=== PATIENT | female | born 1945 | race Caucasian/White ===

== ENCOUNTER 2016-08-31 11:25 | Outpatient (CLI) | payer MEDICARE, OTHER | END 2016-08-31 11:26 | disposition home or self-care (01) | DX: E11.9 Type 2 diabetes mellitus without complications (principal) ==

== ENCOUNTER 2016-11-26 08:00 | Outpatient (CLI) | payer MEDICARE, OTHER ==
[2016-11-26 19:04] LABS: BASOPHILS % (AUTO) 0.4 %; EOSINOPHILS # (AUTO) 0.1 10^3/uL (0.0-0.7); EOSINOPHILS % (AUTO) 1.4 %; HCT - HEMATOCRIT 38.8 % (37.0-47.0); HGB - HEMOGLOBIN 12.2 g/dL (12.0-16.0); LYMPHOCYTES % (AUTO) 22.8 %; MEAN CORPUSCULAR HEMOGLOBIN 24.6 pg (27.0-31.0); MEAN CORPUSCULAR HGB CONC 31.4 g/dL (32.0-36.0); MEAN CORPUSCULAR VOLUME 78.5 fL (81.0-99.0); MEAN PLATELET VOLUME 8.4 fL (7.9-10.8); MONOCYTES # (AUTO) 0.7 10^3/uL (0.0-1.0); MONOCYTES % (AUTO) 8.1 %; NEUTROPHILS # (AUTO) 5.8 10^3/uL (1.5-6.6); NEUTROPHILS % (AUTO) 67.3 %; NUCLEATED RED BLOOD CELLS AUTO 0.1 /100WBC; RED BLOOD COUNT 4.94 10^6/uL (4.20-5.40); RED CELL DISTRIBUTION WIDTH 15.5 % (12.0-15.0); UNCORRECTED WHITE BLOOD COUNT 8.7 x10^3/uL; WHITE BLOOD COUNT 8.7 x10^3/uL (4.8-10.8)
[2016-11-26 19:41] LABS: ALBUMIN/GLOBULIN RATIO 1.1 (1.0-2.2); BILIRUBIN,TOTAL 0.3 mg/dL (0.2-1.0); BUN - BLOOD UREA NITROGEN 14 mg/dL (6-20); CALCIUM 8.8 mg/dL (8.5-10.3); CARBON DIOXIDE - CO2 25 mmol/L (21-32); CHLORIDE 103 mmol/L (101-111); CHOL/HDL RATIO 2.6 (<4.4); CHOLESTEROL 182 mg/dL; CREATININE 0.8 mg/dL (0.4-1.0); GFR - MDRD 71 (>89); GLUCOSE 145 mg/dL (70-100); HDL CHOLESTEROL 69 mg/dL; LDL/HDL RATIO 1.3 (<4.4); POTASSIUM 4.1 mmol/L (3.5-5.0); SODIUM 136 mmol/L (135-145); TRIGLYCERIDES 131 mg/dL; VLDL CHOLESTEROL 26 mg/dL
[2016-11-26 20:14] LABS: HEMOGLOBIN A1C 0.69 g/dL
== END 2016-11-26 23:59 ==
LOC: LAB.WCP 08:00
PROVIDERS: ATTEND Family Medicine
DX: E11.9 Type 2 diabetes mellitus without complications (principal)
CPT/HCPCS: 36415; 80053; 80061; 83036; 84443; 85025

== ENCOUNTER 2017-01-29 07:58 | Outpatient (CLI) | payer MEDICARE, OTHER | END 2017-01-29 07:59 | disposition critical access hospital (66) | LOC: EMS 07:58 | PROVIDERS: ATTEND Surgery | DX: M54.5 Low back pain (principal); M25.552 Pain in left hip; W18.30XA Fall on same level, unspecified, initial encounter; Y93.01 Activity, walking, marching and hiking; Y92.039 Unspecified place in apartment as the place of occurrence of the external cause | CPT/HCPCS: A0425; A0427 ==

== ENCOUNTER 2017-01-29 08:17 | Emergency (ER) | payer MEDICARE, OTHER ==
[2017-01-29] MEDS ORDERED: diazePAM INJ 5 MG/ML SYRINGE IVP STA (08:31)
[2017-01-29] MEDS ORDERED: ACETAMINOPHEN 1,000 MG/100 ML 100 ML IV STA (08:31)
--- NOTE | 2017-01-29 08:35 | ED Physician Documentation ---
History of Present Illness - Stated complaint Stated Complaint: FALL - Chief complaint Chief Complaint: Ext Problem - Additonal information Additional information: hx from pt 71 female has weakness and recurrent falls was at assisted living with walker and fell onto her bottom and then tipped backwards and struck her head no LOC to ER BIBA NICHOLAS neck pain posterior L hip pain and L ankle pain no blood thinners no fever cough CP SOA NVD Review of Systems Constitutional: denies: Fever, Chills Throat: denies: Sore throat Cardiac: denies: Chest pain / pressure Respiratory: denies: Dyspnea, Cough GI: denies: Abdominal Pain, Nausea, Vomiting, Diarrhea Musculoskeletal: reports: Neck pain, Extremity pain Neurologic: reports: Headache, Head injury Endocrine: denies: Easy bruising / bleeding Immunocompromised: denies: Immunocompromised PD PAST MEDICAL HISTORY - Past Medical History Cardiovascular: Hypertension Respiratory: Asthma, COPD, Pneumonia Neuro: Parkinson's Endocrine/Autoimmune: Type 2 diabetes, HyPOthyroidism GI: GERD, Chronic constipation : Incontinence HEENT: None Psych: Depression, Anxiety Musculoskeletal: None Derm: None - Past Surgical History Past Surgical History: Yes Ortho: Spine surgery - Present Medications Home Medications: Ambulatory Orders Medication Instructions Recorded Confirmed Acetaminophen [Tylenol] 325 mg PO Q4HR PRN 12/10/14 06/20/15 Carbidopa/Levodopa [Carbidopa-Levo 2.5 tab PO 0600,1200,1800,2300 12/10/1406/20 25-100 mg Odt] L.acidoph,Paracasei, B.lactis 1 cap PO DAILY 12/10/14 06/20/15 [Probiotic] Levothyroxine Sodium 25 mcg PO DAILY 12/10/14 06/20/15 Melatonin 5 mg PO QPM 12/10/14 06/20/15 Multivitamin [Multi-Vitamin Daily] 1 tab PO DAILY 12/10/14 06/20/15 Mupirocin 2% Oint [Bactroban 2% 1 applic TOP BID 12/10/14 06/20/15 Oint] Nystatin Cream [Mycostatin Cream] 1 applic TOP BID 12/10/14 06/20/15 Rasagiline [Azilect] 1 mg PO DAILY 12/10/14 06/20/15 Benzonatate [Tessalon Perle] 100 mg PO Q6H PRN #20 capsule 03/09/15 06/20/15 Docusate Sodium [Stool Softener] 2 tab BID 04/25/15 06/20/15 Fluticasone/Salmeterol [Advair 1 puffs INH BID 04/25/15 06/20/15 100-50 Diskus] Ibuprofen 400 mg PO BID PRN 04/25/15 06/20/15 Albuterol [Ventolin Hfa] 2 puffs INH Q6H PRN 04/26/15 06/20/15 Levalbuterol Tartrate [Xopenex Hfa] 1 puffs IH Q4H PRN 04/26/15 06/20/15 Nystatin 1 applic TOP BID 04/26/15 06/20/15 HYDROcod/ACETAM 5/325 [[place] 5/325] 1 - 2 ea PO Q6H PRN 05/28/16 05/28/16 Insulin Aspart [Novolog] 9 unit SQ QDAC 05/28/16 Insulin Glargine,Hum.rec.anlog 35 unit SQ DAILY 05/28/16 05/28/16 [Lantus Solostar] Losartan [Cozaar] 25 mg PO DAILY 05/28/16 05/28/16 Magnesium 500 mg PO QPM 05/28/16 Omeprazole [PriLOSEC] 20 mg PO DAILY 05/28/16 05/28/16 Senna [Senokot] 8.6 mg PO DAILY 05/28/16 05/28/16 - Allergies Allergies/Adverse Reactions: Allergies Allergy/AdvReac Type Severity Reaction Status Date / Time erythromycin base Allergy Unknown Unknown Verified 06/20/15 12:42 cheese Allergy Unknown Verified 06/20/15 12:42 furosemide [From Lasix] Allergy Unknown Verified 06/20/15 12:42 ibuprofen Allergy Unknown Verified 06/20/15 12:42 lisinopril Allergy Unknown Verified 06/20/15 12:42 zolpidem Allergy Unknown Verified 06/20/15 12:42 Penicillins AdvReac Severe Hives Verified 06/20/15 12:42 flour Allergy Unknown Uncoded 06/20/15 12:42 - Social History Does the pt smoke?: No Smoking Status: Never smoker Does the pt drink ETOH?: No Does the pt have substance abuse?: No - Immunizations Immunizations are current?: Yes - POLST Patient has POLST: Yes PD ED PE NORMAL - Vitals Vital signs reviewed: Yes - General General: Alert and oriented X 3 - HEENT HEENT: Atraumatic, PERRL, Other (but c'of NICHOLAS) - Neck Neck: No: No bony TTP (+ diffuse bony TTP s step off, possible distracting injury as well, will image) - Cardiac Cardiac: RRR - Respiratory Respiratory: No respiratory distress, Clear bilaterally - Abdomen Abdomen: Non tender - Extremities Extremities: Other (LLE slightly internally roatted no short, TTP posterior L hip near SO region, femur, knee tib fib NT, calf mm spasm, TTP ankle s deformity , MSV intact) - Neuro Neuro: Alert and oriented X 3, No motor deficit, No sensory deficit Results - Vitals Vitals: Vital Signs - 24 hr 01/29/17 08:18 Temperature 36.5 C Heart Rate 85 Respiratory 16 Rate Blood Pressure 169/81 H O2 Saturation 96 Oxygen O2 Source Room air - Labs Labs: Laboratory Tests 01/29/17 10:37 Urine Color YELLOW Urine Clarity CLEAR Urine pH 7.0 Ur Specific [place] <=1.005 Urine Protein NEGATIVE Urine Glucose (UA) NEGATIVE Urine Ketones NEGATIVE Urine Occult Blood NEGATIVE Urine Nitrite NEGATIVE Urine Bilirubin NEGATIVE Urine Urobilinogen 0.2 (NORMAL) Ur Leukocyte Esterase NEGATIVE Ur Microscopic Review NOT INDICATED Urine Culture Comments NOT INDICATED - Rads (name of study) CTH Radiology: See rad report (no acute) CT CS Radiology: See rad report (no acute) ankle Radiology: See rad report (no acute) L hip and pelvis Radiology: See rad report (no acute) PD MEDICAL DECISION MAKING - ED course ED course: all imaging neg pt now able to transfer and ambuulate with assistance (baseline per records from assisted living) s pain so will dc Departure - Departure Disposition: 01 Home, Self Care Clinical Impression: Fall Qualifiers: Encounter type: initial encounter Qualified Code(s): W19.XXXA - Unspecified fall, initial encounter Head injury Qualifiers: Encounter type: initial encounter Qualified Code(s): S09.90XA - Unspecified injury of head, initial encounter Contusion, hip Qualifiers: Encounter type: initial encounter Laterality: left Qualified Code(s): S70.02XA - Contusion of left hip, initial encounter Condition: Good Instructions: ED Head Injury Closed, ED Contusion Hip, ED Prevention Fall Follow-Up: Ray Irvin, [Primary Care Provider] - (to get your blood pressure rechecked - it was high today ) Comments: The pictures of your head spine pelvis and hip were all fine. The pain seems better now and you are able to comfortable stand and transfer So I think it is safe for you to go back to your residence Please always use your walker and ask for assistance with transfer and ambulation and read over th provided information about steps you can take to try and prevent future falls
[2017-01-29] MEDS ORDERED: ACETAMINOPHEN 1,000 MG/100 ML 100 ML IV ONE (08:51)
[2017-01-29] MEDS ORDERED: diazePAM INJ 5 MG/ML SYRINGE ONE (08:51)
--- NOTE | 2017-01-29 10:09 | XRAY Preliminary Report ---
Exam: XR Ankle 3 View LT IMPRESSION: 1. No acute osseous abnormalities. [facility] SITE ID: [id number]
--- NOTE | 2017-01-29 10:11 | XRAY Preliminary Report ---
Exam: XR Hip w/Pelvis 2-3V LT IMPRESSION: 1. No acute osseous abnormalities. Normal alignment. 2. Mild degenerative changes of the left hip joint. [facility] SITE ID: [id number]
--- NOTE | 2017-01-29 10:12 | XRAY Report ---
EXAM: LEFT ANKLE RADIOGRAPHY EXAM DATE: 01/29/2017 09:52 AM. CLINICAL HISTORY: Fall L ankle pain. COMPARISON: None. TECHNIQUE: 3 views. FINDINGS: Bones: No acute fracture or bony lesion. Posterior calcaneal spur. Joints: Ankle mortise is well maintained. No ankle effusion. No dislocation. Degenerative changes of the left tibiotalar joint and left midfoot. Soft Tissues: Soft tissue swelling. IMPRESSION: 1. No acute osseous abnormalities. [facility] Referring Provider Line: [phone] SITE ID: [id number]
--- NOTE | 2017-01-29 10:14 | XRAY Report ---
EXAM: LEFT HIP AND PELVIS RADIOGRAPHY EXAM DATE: 01/29/2017 09:52 AM. HISTORY: Fall posterior L hip pain. COMPARISONS: 12/29/2015. TECHNIQUE: 1 view of the pelvis and 1 view of the hip. FINDINGS: Bones: Pelvic ring is intact. No acute fracture or bony lesion. Mild degenerative spurring. Joints: Mild narrowing of the left hip joint. Degenerative changes of the lower lumbar spine and righ t hip joint. No dislocation. Soft Tissues: No radiopaque foreign bodies. IMPRESSION: 1. No acute osseous abnormalities. Normal alignment. 2. Mild degenerative changes of the left hip joint. [facility] Referring Provider Line: [phone] SITE ID: [id number]
--- NOTE | 2017-01-29 11:07 | CT Preliminary Report ---
Exam: CT Head W/O IMPRESSION: 1. No acute intracranial abnormality is identified. 2. Parenchymal volume loss and chronic white matter changes. [facility] SITE ID: [id number]
--- NOTE | 2017-01-29 11:09 | CT Report ---
EXAM: CT HEAD EXAM DATE: 01/29/2017 10:22 AM. CLINICAL HISTORY: Fall. Headache. COMPARISON: 05/11/2015. 04/25/2015. TECHNIQUE: Multiaxial CT images were obtained from the foramen magnum to the vertex. IV contrast: Non e. Reformats: Coronal. In accordance with CT protocol optimization, one or more of the following dose reduction techniques w ere utilized for this exam: automated exposure control, adjustment of mA and/or KV based on patient s ize, or use of iterative reconstructive technique. FINDINGS: Parenchyma: Diffuse parenchymal volume loss with periventricular regions of low attenuation. No evide nce of an acute vascular insult or acute parenchymal hemorrhage. No midline shift. No mass effect Extraaxial Spaces: Extra-axial spaces are prominent. No acute extra-axial fluid collections are ident ified. Ventricles: Ventricles are enlarged although symmetric. Sinuses: Imaged paranasal sinuses, orbits, and mastoids show no significant abnormality. Bones: No evidence of fracture or calvarial defect. Other: Changes are seen from bilateral lens surgery. Otherwise, globes and orbits are unremarkable. V ascular calcifications are noted. IMPRESSION: 1. No acute intracranial abnormality is identified. 2. Parenchymal volume loss and chronic white matter changes. [facility] Referring Provider Line: [phone] SITE ID: [id number]
--- NOTE | 2017-01-29 11:12 | CT Preliminary Report ---
Exam: CT Cervical Spine W/O IMPRESSION: 1. No acute cervical spine abnormalities are identified. 2. Degenerative changes of the cervical spine. [facility] SITE ID: [id number]
--- NOTE | 2017-01-29 11:14 | CT Report ---
EXAM: CT CERVICAL SPINE WITHOUT CONTRAST DATE: 01/29/2017 10:21 AM HISTORY: Fall neck pain. COMPARISONS: 05/11/2015. 04/25/2015. TECHNIQUE: Thin-section axial images were acquired of the cervical spine without contrast. Post-proce ssing: Coronal and sagittal reformats. Other: None. In accordance with CT protocol optimization, one or more of the following dose reduction techniques w ere utilized for this exam: automated exposure control, adjustment of mA and/or KV based on patient s ize, or use of iterative reconstructive technique. FINDINGS: Alignment: No scoliosis. Anterolisthesis of C3 on C4 measuring 1.5 mm. Articular facets are normally aligned. Occipital condyles are normally aligned upon the lateral masses of C1. Bones: Incomplete fusion of the posterior arch of C1, a normal variant. Degenerative spurring. No acu te fracture. No bony lesions. Interspace Levels/Facets: C1-C2: Degenerative changes of the anterior arch of C1 and the dens. C2-C3: Partial ankylosis. Intervertebral disk space narrowing. Facet arthropathy. C3-C4: Disk space narrowing. Posterior disk osteophyte complex and left uncovertebral hypertrophy. Fa cet arthropathy. Mild to moderate left neural foraminal narrowing. Central canal narrowing. C4-C5: Disk space narrowing. Osteophyte formation. Broad-based disk osteophyte complex largely on the left with uncovertebral hypertrophy. Facet arthropathy, left greater than right. Mild central canal narrowing. Moderate left neural foraminal narrowing. C5-C6: Disk space narrowing. Osteophyte formation. Broad-based disk osteophyte complex. Central canal narrowing. Facet arthropathy. Severe right and moderate severe left neural foraminal narrowing. C6-C7: Disk space narrowing and osteophyte formation. Disk osteophyte complex. Central canal narrowin g. Facet arthropathy. Severe bilateral neural foraminal narrowing. C7-T1: Disk space narrowing and osteophyte formation. Facet arthropathy. Musculature: Normal. No fatty atrophy. Other: Prevertebral soft tissues are normal. Vascular calcifications. Skull base is unremarkable. Air ways are clear. No enlarged cervical lymph nodes. Visualized sterile gland is heterogeneous. Lung api oz are clear. Thoracic aortic calcified plaque is present. IMPRESSION: 1. No acute cervical spine abnormalities are identified. 2. Degenerative changes of the cervical spine. [facility] Referring Provider Line: [phone] SITE ID: [id number]
[2017-01-29 11:17] LABS: BILIRUBIN,URINE NEGATIVE (NEGATIVE)
[2017-01-29 11:18] LABS: UA CHARGE (STRIP ONLY) YES; UR CULTURE IF IND NOT INDICATED
[2017-01-29 13:20] VITALS: BP 160/75
== END 2017-01-29 13:20 | disposition home or self-care (01) ==
LOC: EDUNIT# → ED 08:17
DX: S09.90XA Unspecified injury of head, initial encounter (principal); S70.02XA Contusion of left hip, initial encounter; M54.2 Cervicalgia; W18.30XA Fall on same level, unspecified, initial encounter; Z91.81 History of falling; Y92.099 Unspecified place in other non-institutional residence as the place of occurrence of the external cause; G20 Parkinson's disease; I10 Essential (primary) hypertension; E11.9 Type 2 diabetes mellitus without complications; Z79.4 Long term (current) use of insulin; E03.9 Hypothyroidism, unspecified
CPT/HCPCS: 70450; 72125; 73502; 73610; 81003; 96374; 96375; 99283; J0131; 81001; 87086

== ENCOUNTER 2017-02-12 13:12 | Outpatient (CLI) | payer MEDICARE, OTHER ==
--- NOTE | 2017-02-12 20:02 | CT Report ---
CT CHEST WITHOUT CONTRAST: 02/12/2017 CLINICAL INDICATION: Followup pulmonary nodule. Axial CT images of the chest were obtained without intravenous contrast. In accordance with CT protocol optimization, one or more of the following dose reduction techniques w ere utilized for this exam: automated exposure control, adjustment of mA and/or KV based on patient size, or use of iterative reconstructive technique. COMPARISON: 10/21/2015 The heart and great vessels demonstrate mild atherosclerotic calcifications. A moderate hiatal herni a is again noted. No hilar or mediastinal lymphadenopathy is seen. The nodule in the posterior left lower lobe now measures 7 x 5 mm (previously 6 x 5 mm), seen on the current examination on axial wong ge 30. No new pulmonary nodule is seen. No effusion or pneumothorax is present. Limited evaluation of upper abdominal structures demonstrates normal adrenal glands. There is prominence of the caudat e and left lobe of the liver, with a somewhat nodular surface contour, suggestive of cirrhosis. A no nobstructing 5 mm calculus is noted in the left kidney. Osseous structures demonstrate degenerative changes. IMPRESSION: NO SIGNIFICANT INTERVAL CHANGE IN PULMONARY NODULE IN THE LEFT LOWER LOBE. RECOMMEND FO LLOWUP CT IN 12 MONTHS TO COMPLETE TWO YEAR SURVEILLANCE. JOB #: [id number] EXT JOB #:[id number]
== END 2017-02-12 13:13 | disposition home or self-care (01) ==
LOC: DI 13:12
PROVIDERS: ATTEND Family Medicine
DX: R91.1 Solitary pulmonary nodule (principal)
CPT/HCPCS: 71250

== ENCOUNTER 2017-03-31 01:15 | Outpatient (CLI) | payer MEDICARE, OTHER | END 2017-03-31 01:16 | disposition critical access hospital (66) | LOC: EMS 01:15 | PROVIDERS: ATTEND Surgery | DX: M54.2 Cervicalgia (principal); W01.0XXA Fall on same level from slipping, tripping and stumbling without subsequent striking against object, initial encounter; Y92.032 Bedroom in apartment as the place of occurrence of the external cause | CPT/HCPCS: A0425; A0429 ==

== ENCOUNTER 2017-03-31 01:33 | Emergency (ER) | payer MEDICARE, OTHER ==
--- NOTE | 2017-03-31 01:43 | ED Physician Documentation ---
PD HPI Fall - Stated complaint Stated Complaint: GLF/HEAD PAIN - History obtained from History obtained from: Patient, EMS - History of Present Illness Mechanism of injury: Slipped Fall distance: Standing position Where injury occurred: Home (lives at [facility]) Timing - onset: How many hours ago (1) Injury(ies) location: Head, Neck, Back (upper back) Pain level max: 3 Pain level now: 3 Quality of pain: Pain, Aching, Dull Associated symptoms: Neck pain. No: LOC, AMS, Amnesia, Seizures, Ear drainage, Nasal drainage, Weakness, Paresthesias, Dyspnea, Nausea / vomiting, Hematemesis , Abdominal distension Symptoms improve with: Rest Worsens with: Movement, Palpation Contributing factors: No: Anticoagulated, Intoxicated Similar symptoms before: Has not had sx before Recently seen: Not recently seen Review of Systems Ten Systems: 10 systems reviewed and negative Constitutional: denies: Fever, Chills Eyes: denies: Photophobia Ears: denies: Ear pain Nose: denies: Rhinorrhea / runny nose, Congestion Cardiac: denies: Chest pain / pressure Respiratory: denies: Cough GI: denies: Nausea, Vomiting, Diarrhea Skin: denies: Rash Neurologic: denies: Focal weakness, Numbness, Seizure PD PAST MEDICAL HISTORY - Past Medical History Cardiovascular: Hypertension Respiratory: Asthma, COPD, Pneumonia Neuro: Parkinson's Endocrine/Autoimmune: Type 2 diabetes, HyPOthyroidism GI: GERD, Chronic constipation : Incontinence HEENT: None Psych: Depression, Anxiety Musculoskeletal: None Derm: None - Past Surgical History Past Surgical History: Yes Ortho: Spine surgery - Present Medications Home Medications: Ambulatory Orders Medication Instructions Recorded Confirmed Acetaminophen [Tylenol] 325 mg PO Q4HR PRN 12/10/14 06/20/15 Carbidopa/Levodopa [Carbidopa-Levo 2.5 tab PO 0600,1200,1800,2300 12/10/1406/20 25-100 mg Odt] L.acidoph,Paracasei, B.lactis 1 cap PO DAILY 12/10/14 06/20/15 [Probiotic] Levothyroxine Sodium 25 mcg PO DAILY 12/10/14 06/20/15 Melatonin 5 mg PO QPM 12/10/14 06/20/15 Multivitamin [Multi-Vitamin Daily] 1 tab PO DAILY 12/10/14 06/20/15 Mupirocin 2% Oint [Bactroban 2% 1 applic TOP BID 12/10/14 06/20/15 Oint] Nystatin Cream [Mycostatin Cream] 1 applic TOP BID 12/10/14 06/20/15 Rasagiline [Azilect] 1 mg PO DAILY 12/10/14 06/20/15 Benzonatate [Tessalon Perle] 100 mg PO Q6H PRN #20 capsule 03/09/15 06/20/15 Docusate Sodium [Stool Softener] 2 tab BID 04/25/15 06/20/15 Fluticasone/Salmeterol [Advair 1 puffs INH BID 04/25/15 06/20/15 100-50 Diskus] Ibuprofen 400 mg PO BID PRN 04/25/15 06/20/15 Albuterol [Ventolin Hfa] 2 puffs INH Q6H PRN 04/26/15 06/20/15 Levalbuterol Tartrate [Xopenex Hfa] 1 puffs IH Q4H PRN 04/26/15 06/20/15 Nystatin 1 applic TOP BID 04/26/15 06/20/15 HYDROcod/ACETAM 5/325 [[place] 5/325] 1 - 2 ea PO Q6H PRN 05/28/16 05/28/16 Insulin Aspart [Novolog] 9 unit SQ QDAC 05/28/16 Insulin Glargine,Hum.rec.anlog 35 unit SQ DAILY 05/28/16 05/28/16 [Lantus Solostar] Losartan [Cozaar] 25 mg PO DAILY 05/28/16 05/28/16 Magnesium 500 mg PO QPM 05/28/16 Omeprazole [PriLOSEC] 20 mg PO DAILY 05/28/16 05/28/16 Senna [Senokot] 8.6 mg PO DAILY 05/28/16 05/28/16 - Allergies Allergies/Adverse Reactions: Allergies Allergy/AdvReac Type Severity Reaction Status Date / Time erythromycin base Allergy Unknown Unknown Verified 03/31/17 01:53 cheese Allergy Unknown Verified 03/31/17 01:53 furosemide [From Lasix] Allergy Unknown Verified 03/31/17 01:53 ibuprofen Allergy Unknown Verified 03/31/17 01:53 lisinopril Allergy Unknown Verified 03/31/17 01:53 zolpidem Allergy Unknown Verified 03/31/17 01:53 Penicillins AdvReac Severe Hives Verified 03/31/17 01:53 flour Allergy Unknown Uncoded 03/31/17 01:53 - Social History Does the pt smoke?: No Smoking Status: Never smoker Does the pt drink ETOH?: No Does the pt have substance abuse?: No - Immunizations Immunizations are current?: Yes - POLST Patient has POLST: Yes PD ED PE NORMAL - Vitals Vital signs reviewed: Yes - General General: Alert and oriented X 3, No acute distress, Well developed/nourished - HEENT HEENT: Atraumatic (no scalp hematomas. TTP over occiput.), PERRL, EOMI, Ears normal, Moist mucous membranes, Pharynx benign - Neck Neck: Supple, no meningeal sign, Other (mild upper C-spine TTP midline. no step off or deformity.) - Cardiac Cardiac: RRR, Strong equal pulses - Respiratory Respiratory: No respiratory distress, Clear bilaterally - Abdomen Abdomen: Soft, Non tender - Back Back: Other (no L spine TTP. Does have mild upper t-spine TTP midline. ) - Derm Derm: Warm and dry - Extremities Extremities: No deformity, No tenderness to palpate - Neuro Neuro: Alert and oriented X 3, road boss 2-12 intact, No motor deficit, No sensory deficit - Psych Psych: Normal mood, Normal affect Results - Vitals Vitals: Vital Signs - 24 hr 03/31/17 01:30 Temperature 36.7 C Heart Rate 78 Respiratory 16 Rate Blood Pressure 165/67 H O2 Saturation 96 Oxygen O2 Source Room air - Rads (name of study) head CT Radiology: Prelim report reviewed, EMP read contemporaneously, See rad report ( No acute or focal intracranial abnormality. Stable findings since 05/11/2015. ) C spine CT Radiology: Prelim report reviewed, EMP read contemporaneously, See rad report ( Degenerative changes narrow the central canal, most pronounced at C5-C6 and C6- C7. Some degree of cord impingement is likely present. Multilevel foraminal stenosis is also seen. Stable findings since 01/29/2017. No fracture is identified. ) T spine Ct Radiology: Prelim report reviewed, EMP read contemporaneously, See rad report ( Disk/endplate osteophytes mildly narrow the central canal at T5-T6, T6-T7 and T7 -T8. Other disk spaces are unremarkable aside from mild multilevel disk space narrowing. Diffuse osteopenia. No fracture is identified. ) PD MEDICAL DECISION MAKING - ED course Complexity details: reviewed results, re-evaluated patient, considered differential, d/w patient ED course: Patient is a 72-year-old female who presents to the emergency department after a ground-level fall today. She lives at [place]. Struck her head and had some neck pain, upper back pain and head pain. These resolved in the emergency department. No acute findings on CT scans. Neurologically intact. Ambulating well in the emergency department. We will have her follow-up with her PCP for further evaluation and care. Patient counseled regarding signs and symptoms for which I believe and urgent re-evaluation would be necessary. Patient with good understanding of and agreement to plan and is comfortable going home at this time This document was made in part using voice recognition software. While efforts are made to proofread this document, sound alike and grammatical errors may occur. Departure - Departure Disposition: 01 Home, Self Care Clinical Impression: Neck pain Fall Qualifiers: Encounter type: initial encounter Qualified Code(s): W19.XXXA - Unspecified fall, initial encounter Head injury Qualifiers: Encounter type: initial encounter Qualified Code(s): S09.90XA - Unspecified injury of head, initial encounter Condition: Good Instructions: ED Head Injury Closed, ED Neck Back Pain General Follow-Up: Ray Irvin DO [Primary Care Provider] - Within 1 week Comments: Your CT scans do not show any acute abnormalities at this time. You do have degenerative disease throughout your spine and to have some canal narrowing which may be impinging on your spinal cord, you can follow-up for this with your doctor for further evaluation.
--- NOTE | 2017-03-31 02:48 | CT Preliminary Report ---
Exam: CT Head W/O IMPRESSION: No acute or focal intracranial abnormality. Stable findings since 05/11/2015. [facility] SITE ID: [id number]
--- NOTE | 2017-03-31 02:51 | CT Report ---
EXAM: CT HEAD EXAM DATE: 03/31/2017 02:25 AM. CLINICAL HISTORY: Fall, neck, head and back pain. COMPARISON: 05/11/2015. TECHNIQUE: Multiaxial CT images were obtained from the foramen magnum to the vertex. IV contrast: Non e. Reformats: Coronal. In accordance with CT protocol optimization, one or more of the following dose reduction techniques w ere utilized for this exam: automated exposure control, adjustment of mA and/or KV based on patient s ize, or use of iterative reconstructive technique. FINDINGS: Parenchyma: No intraparenchymal hemorrhage. No evidence of mass, midline shift, or CT findings of inf arction. Macdonald-white differentiation is distinct. Extraaxial Spaces: Normal for age. No subdural or epidural collections identified. Ventricles: Normal in size and position. Sinuses: Imaged paranasal sinuses, orbits, and mastoids show no significant abnormality. Bones: No evidence of fracture or calvarial defect. Other: No change since the prior study. Grossly stable nonspecific white matter hypodensity, likely small vessel ischemia. IMPRESSION: No acute or focal intracranial abnormality. Stable findings since 05/11/2015. [facility] Referring Provider Line: [phone] SITE ID: [id number]
--- NOTE | 2017-03-31 03:02 | CT Preliminary Report ---
Exam: CT Cervical Spine W/O IMPRESSION: Degenerative changes narrow the central canal, most pronounced at C5-C6 and C6-C7. Some d egree of cord impingement is likely present. Multilevel foraminal stenosis is also seen. Stable findi ngs since 01/29/2017. No fracture is identified. [facility] SITE ID: [id number]
--- NOTE | 2017-03-31 03:04 | CT Report ---
EXAM: CT CERVICAL SPINE WITHOUT CONTRAST DATE: 03/31/2017 02:24 AM HISTORY: Fall, neck, head and back pain. COMPARISONS: 01/29/2017. TECHNIQUE: Thin-section axial images were acquired of the cervical spine without contrast. Post-proce ssing: Coronal and sagittal reformats. Other: None. In accordance with CT protocol optimization, one or more of the following dose reduction techniques w ere utilized for this exam: automated exposure control, adjustment of mA and/or KV based on patient s ize, or use of iterative reconstructive technique. FINDINGS: Alignment: Straightening of the cervical lordosis. 3 mm of anterolisthesis at C3-C4. Bones: No fracture or bone lesion. 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 C2-C3: Non-surgically fused. C3-C4: Moderate left-sided facet osteoarthritis. Moderate to severe left-sided foraminal stenosis. C4-C5: Moderate disk space narrowing. Left-sided facet osteoarthritis. Moderate to severe left-sided foraminal stenosis. C5-C6: Severe disk space narrowing. Endplate osteophyte narrows the central canal. Severe bilateral f oraminal stenosis. C6-C7: Severe disk space narrowing. Endplate osteophyte narrows the central canal, more pronounced th an at C5-C6. Severe bilateral foraminal stenosis. C7-T1: Unremarkable. Musculature: Normal. No fatty atrophy. Other: The paravertebral and prevertebral soft tissues are normal. The lung apices are clear. No change appreciated since the prior study. IMPRESSION: Degenerative changes narrow the central canal, most pronounced at C5-C6 and C6-C7. Some d egree of cord impingement is likely present. Multilevel foraminal stenosis is also seen. Stable findi ngs since 01/29/2017. No fracture is identified. [facility] Referring Provider Line: [phone] SITE ID: [id number]
--- NOTE | 2017-03-31 03:07 | CT Preliminary Report ---
Exam: CT Thoracic Spine W/O IMPRESSION: Disk/endplate osteophytes mildly narrow the central canal at T5-T6, T6-T7 and T7-T8. Othe r disk spaces are unremarkable aside from mild multilevel disk space narrowing. Diffuse osteopenia. N o fracture is identified. [facility] SITE ID: [id number]
--- NOTE | 2017-03-31 03:10 | CT Report ---
EXAM: CT THORACIC SPINE WITHOUT CONTRAST EXAM DATE: 03/31/2017 02:26 AM. CLINICAL HISTORY: Fall, neck, head and back pain. COMPARISONS: None. TECHNIQUE: Thin-section axial images were acquired of the thoracic spine from C7 to L1 without contra st. Post-processing: Coronal and sagittal reformats. Other: None. In accordance with CT protocol optimization, one or more of the following dose reduction techniques w ere utilized for this exam: automated exposure control, adjustment of mA and/or KV based on patient s ize, or use of iterative reconstructive technique. FINDINGS: Alignment: Mild dextroscoliosis and accentuated thoracic kyphosis. Bones: Prominent diffuse osteopenia. No findings of recent fracture. Disk Levels/Facets: Disk/endplate osteophytes mildly narrow the central canal at T5-T6, T6-T7 and T7-T8. Other disk space s are unremarkable aside from mild multilevel disk space narrowing. Musculature: Normal. No fatty atrophy. Other: There is a hiatal hernia IMPRESSION: Disk/endplate osteophytes mildly narrow the central canal at T5-T6, T6-T7 and T7-T8. Othe r disk spaces are unremarkable aside from mild multilevel disk space narrowing. Diffuse osteopenia. N o fracture is identified. [facility] Referring Provider Line: [phone] SITE ID: [id number]
[2017-03-31 05:48] VITALS: BP 145/87
== END 2017-03-31 05:46 | disposition home or self-care (01) ==
LOC: EDUNIT# → ED 01:33 → SUPCPDRO 01:33 → ED 05:46
DX: S09.90XA Unspecified injury of head, initial encounter (principal); M54.2 Cervicalgia; M54.6 Pain in thoracic spine; W01.0XXA Fall on same level from slipping, tripping and stumbling without subsequent striking against object, initial encounter; Y92.099 Unspecified place in other non-institutional residence as the place of occurrence of the external cause; G20 Parkinson's disease; I10 Essential (primary) hypertension; E11.9 Type 2 diabetes mellitus without complications; Z79.4 Long term (current) use of insulin; E03.9 Hypothyroidism, unspecified
CPT/HCPCS: 70450; 72125; 72128; 99283; 99284

== ENCOUNTER 2017-04-10 12:05 | Outpatient (CLI) | payer MEDICARE, OTHER ==
[2017-04-10 19:20] LABS: BASOPHILS % (AUTO) 0.4 %; EOSINOPHILS # (AUTO) 0.1 10^3/uL (0.0-0.7); EOSINOPHILS % (AUTO) 0.8 %; HCT - HEMATOCRIT 40.2 % (37.0-47.0); HGB - HEMOGLOBIN 12.9 g/dL (12.0-16.0); LYMPHOCYTES # (AUTO) 1.6 10^3/uL (1.5-3.5); LYMPHOCYTES % (AUTO) 15.1 %; MEAN CORPUSCULAR HEMOGLOBIN 24.9 pg (27.0-31.0); MEAN CORPUSCULAR VOLUME 77.7 fL (81.0-99.0); MEAN PLATELET VOLUME 8.3 fL (7.9-10.8); MONOCYTES # (AUTO) 0.7 10^3/uL (0.0-1.0); MONOCYTES % (AUTO) 6.5 %; NEUTROPHILS # (AUTO) 8.1 10^3/uL (1.5-6.6); NEUTROPHILS % (AUTO) 77.2 %; RED BLOOD COUNT 5.17 10^6/uL (4.20-5.40); RED CELL DISTRIBUTION WIDTH 16.4 % (12.0-15.0); UNCORRECTED WHITE BLOOD COUNT 10.5 x10^3/uL; WHITE BLOOD COUNT 10.5 x10^3/uL (4.8-10.8)
[2017-04-10 19:33] LABS: HEMOGLOBIN A1C 0.9 g/dL
[2017-04-10 19:39] LABS: ALBUMIN/GLOBULIN RATIO 1.3 (1.0-2.2); BILIRUBIN,TOTAL 0.5 mg/dL (0.2-1.0); BUN - BLOOD UREA NITROGEN 20 mg/dL (6-20); CALCIUM 9.3 mg/dL (8.5-10.3); CARBON DIOXIDE - CO2 22 mmol/L (21-32); CHLORIDE 103 mmol/L (101-111); CREATININE 0.9 mg/dL (0.4-1.0); GFR - MDRD 62 (>89); GLUCOSE 225 mg/dL (70-100); POTASSIUM 4.2 mmol/L (3.5-5.0); SODIUM 135 mmol/L (135-145); TOTAL PROTEIN 6.4 g/dL (6.7-8.2)
[2017-04-10 20:25] LABS: THYROID STIMULATING HORMONE 1.7 uIU/mL (0.34-5.60)
== END 2017-04-10 12:06 ==
LOC: LAB.R 12:05 → LAB.WCP 12:06
PROVIDERS: ATTEND Family Medicine
DX: E11.9 Type 2 diabetes mellitus without complications (principal); G20 Parkinson's disease
CPT/HCPCS: 36415; 80053; 82306; 82607; 82652; 83036; 84443; 85025

== ENCOUNTER 2017-04-15 11:10 | Emergency (ER) | payer MEDICARE, OTHER ==
[2017-04-15 11:27] VITALS: BP 180/77
--- NOTE | 2017-04-15 12:35 | ED Physician Documentation ---
PD HPI CHEST PAIN - Stated complaint Stated Complaint: CHEST/HEAD PX - Chief complaint Chief Complaint: General - History obtained from History obtained from: Patient - History of Present Illness Timing - onset: How many weeks ago (2) Timing - onset during: Other (she had a fall about 2 weeks ago and was seen in ED for neck pain. Says her head still hurts at times when moves quickly, and neck hurts with side to side ROM. Having some pain in left ribs intermittently. No new fall nor injury. Has been taking Tylenol without good improvement. Has oxycodone at home but does not like to take it as makes her feel "too drugged".) Timing - duration: Weeks (2) Timing - details: Abrupt onset, Still present Quality: Aching Location: Left chest, Other (also headache and some feeling of chest heaviness, hurting with movement.) Radiation: No: Back, Abdominal Improved by: Rest Worsened by: Inspiration, Movement, Position Associated symptoms: General Weakness, Palpitations. No: Shortness of air, Nausea, Feeling faint / dizzy Similar symptoms before: Has not had sx before Recently seen: Emergency Dept (03/31/17 for fall with injury of left chest/back and head, with CTs head, neck, chest. Directted to use Tylenol PRN. Patient has had continued pains at times in head and chest. No new fall.) Review of Systems Constitutional: denies: Fever, Chills Nose: denies: Rhinorrhea / runny nose, Congestion Throat: denies: Sore throat Cardiac: reports: Chest pain / pressure. denies: Palpitations, Pedal edema, Calf pain Respiratory: reports: Dyspnea. denies: Cough, Wheezing GI: denies: Abdominal Pain, Nausea, Vomiting, Diarrhea, Bloody / black stool : denies: Dysuria, Frequency Skin: denies: Abrasion (s), Laceration (s) Musculoskeletal: denies: Neck pain, Extremity pain Neurologic: denies: Focal weakness, Numbness PD PAST MEDICAL HISTORY - Past Medical History Past Medical History: Yes Cardiovascular: Hypertension Respiratory: Asthma, COPD, Pneumonia Neuro: Parkinson's Endocrine/Autoimmune: Type 2 diabetes, HyPOthyroidism GI: GERD, Chronic constipation : Incontinence HEENT: None Psych: Depression, Anxiety Musculoskeletal: None Derm: None - Past Surgical History Past Surgical History: Yes Ortho: Spine surgery - Present Medications Home Medications: Ambulatory Orders Medication Instructions Recorded Confirmed Acetaminophen [Tylenol] 325 mg PO Q4HR PRN 12/10/14 04/15/17 Carbidopa/Levodopa [Carbidopa-Levo 2.5 tab PO 0600,1200,1800,2300 12/10/1404/15 25-100 mg Odt] L.acidoph,Paracasei, B.lactis 1 cap PO DAILY 12/10/14 04/15/17 [Probiotic] Levothyroxine Sodium 25 mcg PO DAILY 12/10/14 04/15/17 Melatonin 5 mg PO QPM 12/10/14 04/15/17 Multivitamin [Multi-Vitamin Daily] 1 tab PO DAILY 12/10/14 04/15/17 Mupirocin 2% Oint [Bactroban 2% 1 applic TOP BID 12/10/14 04/15/17 Oint] Nystatin Cream [Mycostatin Cream] 1 applic TOP BID 12/10/14 04/15/17 Rasagiline [Azilect] 1 mg PO DAILY 12/10/14 04/15/17 Benzonatate [Tessalon Perle] 100 mg PO Q6H PRN #20 capsule 03/09/15 04/15/17 Docusate Sodium [Stool Softener] 2 tab BID 04/25/15 04/15/17 Fluticasone/Salmeterol [Advair 1 puffs INH BID 04/25/15 04/15/17 100-50 Diskus] Ibuprofen 400 mg PO BID PRN 04/25/15 04/15/17 Albuterol [Ventolin Hfa] 2 puffs INH Q6H PRN 04/26/15 04/15/17 Levalbuterol Tartrate [Xopenex Hfa] 1 puffs IH Q4H PRN 04/26/15 04/15/17 Nystatin 1 applic TOP BID 04/26/15 04/15/17 HYDROcod/ACETAM 5/325 [[place] 5/325] 1 - 2 ea PO Q6H PRN 05/28/16 04/15/17 Insulin Aspart [Novolog] 9 unit SQ QDAC 05/28/16 04/15/17 Insulin Glargine,Hum.rec.anlog 35 unit SQ DAILY 05/28/16 04/15/17 [Lantus Solostar] Losartan [Cozaar] 25 mg PO DAILY 05/28/16 04/15/17 Magnesium 500 mg PO QPM 05/28/16 04/15/17 Omeprazole [PriLOSEC] 20 mg PO DAILY 05/28/16 04/15/17 Senna [Senokot] 8.6 mg PO DAILY 05/28/16 04/15/17 Naproxen 375 mg PO BID #20 tablet 04/15/17 Tramadol HCl 50 mg PO Q6H PRN #20 tablet 04/15/17 - Allergies Allergies/Adverse Reactions: Allergies Allergy/AdvReac Type Severity Reaction Status Date / Time erythromycin base Allergy Unknown Unknown Verified 03/31/17 01:53 cheese Allergy Unknown Verified 03/31/17 01:53 furosemide [From Lasix] Allergy Unknown Verified 03/31/17 01:53 ibuprofen Allergy Unknown Verified 03/31/17 01:53 lisinopril Allergy Unknown Verified 03/31/17 01:53 zolpidem Allergy Unknown Verified 03/31/17 01:53 Penicillins AdvReac Severe Hives Verified 03/31/17 01:53 flour Allergy Unknown Uncoded 03/31/17 01:53 - Social History Does the pt smoke?: No Smoking Status: Never smoker Does the pt drink ETOH?: No Does the pt have substance abuse?: No - Immunizations Immunizations are current?: Yes - POLST Patient has POLST: Yes PD ED PE NORMAL - Vitals Vital signs reviewed: Yes - General General: Alert and oriented X 3, No acute distress, Well developed/nourished - HEENT HEENT: Atraumatic, Ears normal, Pharynx benign - Neck Neck: Supple, no meningeal sign, No bony TTP (tender left side neck in muscles. ), No adenopathy - Cardiac Cardiac: RRR, No murmur - Respiratory Respiratory: Clear bilaterally, Other (left posterolateral chest wall with tenderness. No bruising. No noted crapitance. ) - Abdomen Abdomen: Soft, Non tender, Non distended - Derm Derm: Normal color, Warm and dry - Extremities Extremities: No tenderness to palpate, Normal ROM s pain - Neuro Neuro: Alert and oriented X 3, No motor deficit, No sensory deficit, Normal speech Results - Vitals Vitals: Vital Signs - 24 hr 04/15/17 11:22 Temperature 36.9 C Heart Rate 87 Respiratory 18 Rate Blood Pressure 180/77 H O2 Saturation 100 Oxygen O2 Source Room air - EKG (time done) 11:30 Rate: Rate (enter#) (95) Rhythm: NSR [place]: Normal Intervals: Normal [place] QRS: Normal Ischemia: Normal ST segments. No: ST elevation c/w ischemia, ST depression PD MEDICAL DECISION MAKING - ED course Complexity details: reviewed old records (seen for these injuries [address] head/neck/chest without acute findings. No new fall. I did not see need for re-imaging. ), reviewed results, considered differential (has persistent pains since recent fall, with some headache at times, chest/back pain that hurts with movement. No focal weaknesses. ), d/w patient Departure - Departure Disposition: 01 Home, Self Care Clinical Impression: Neck pain, Intermittent headache Contusion of chest Qualifiers: Encounter type: subsequent encounter Laterality: left Qualified Code(s): S20.212D - Contusion of left front wall of thorax, subsequent encounter Condition: Stable Record reviewed to determine appropriate education?: Yes Instructions: ED Contusion Chest Wall, ED Neck Back Pain General Follow-Up: Ray Irvin DO [Primary Care Provider] - Prescriptions: Naproxen 375 mg PO BID #20 tablet Tramadol HCl 50 mg PO Q6H PRN #20 tablet PRN Reason: Pain Comments: Continue your current medications. Add naproxen 375 mg twice daily for a week as an anti-inflammatory. Be sure to take it with some food. To this add the Tylenol 4 times a day as needed for pain. If needing something a little stronger, try tramadol and see if it works okay without making you feel "too drugged". Follow-up with Dr. Irvin. Contact her and see if she can increase her current physical therapy to include work on the neck for the arthritis and degenerative disks. Discharge Date/Time: 04/15/17 13:32
[2017-04-15] MEDS ORDERED: NAPROXEN 250 MG TABLET PO STA (13:12)
[2017-04-15] MEDS ORDERED: traMADol 50 MG TABLET PO STA (13:12)
[2017-04-15] MEDS ORDERED: NAPROXEN 250 MG TABLET PO ONE (13:29)
[2017-04-15] MEDS ORDERED: traMADol 50 MG TABLET PO ONE (13:30)
== END 2017-04-15 13:32 | disposition home or self-care (01) ==
LOC: ED 11:10
DX: M54.2 Cervicalgia (principal); R51 Headache; S20.212D Contusion of left front wall of thorax, subsequent encounter; W19.XXXD Unspecified fall, subsequent encounter
CPT/HCPCS: 93005; 99283; 99284; A9270

== ENCOUNTER 2017-04-30 10:11 | Outpatient (CLI) | payer MEDICARE, OTHER | END 2017-04-30 10:12 | disposition home or self-care (01) | LOC: SC 10:11 | PROVIDERS: ATTEND Internal Medicine Pulmonary Disease | DX: G47.10 Hypersomnia, unspecified (principal); R06.83 Snoring | CPT/HCPCS: 99203; G0463; 99212 ==

== ENCOUNTER 2017-09-08 06:15 | Outpatient (CLI) | payer MEDICARE, OTHER | END 2017-09-08 06:16 | disposition critical access hospital (66) | LOC: EMS 06:15 | PROVIDERS: ATTEND Surgery | DX: R52 Pain, unspecified (principal) | CPT/HCPCS: A0425; A0427 ==

== ENCOUNTER 2017-09-08 06:33 | Emergency (ER) | payer MEDICARE, OTHER ==
--- NOTE | 2017-09-08 07:08 | ED Physician Documentation ---
PD HPI CHEST PAIN - Stated complaint Stated Complaint: NICHOLAS, BACK PX, CHEST/ ARM PX - Chief complaint Chief Complaint: Cardiac - History obtained from History obtained from: Patient, EMS - History of Present Illness Timing - onset: Last night Timing - onset during: Other (her neck is hurting after a fall in the past couple days, and worse last night. The chest pain is pressure feeling left chest and started last night, continues to this morning. Some worse with movement. Has had this intermittently since Shari, about weekly or so, but more often lately. Notes it worse with eating.) Timing - details: Abrupt onset, Still present Quality: Pressure, Tightness, Aching Location: Left chest, Left shoulder/arm Associated symptoms: Nausea, General Weakness. No: Shortness of air, Diaphoresis, Feeling faint / dizzy Similar symptoms before: No diagnosis Recently seen: Clinic (few weeks ago) Review of Systems Constitutional: reports: Fatigue. denies: Fever, Myalgias Nose: denies: Rhinorrhea / runny nose, Congestion Throat: denies: Sore throat Cardiac: reports: Pedal edema (mild chronic). denies: Palpitations, Calf pain Respiratory: denies: Dyspnea GI: reports: Abdominal Pain (intermittent fullness and cramping, lessened with addition of stool softener.). denies: Vomiting, Diarrhea : denies: Dysuria, Frequency Skin: reports: Rash (redness right inguinal area and under stomach pannus being treated as yeast with nystatin powder.). denies: Lesions Musculoskeletal: reports: Neck pain Neurologic: reports: Generalized weakness. denies: Focal weakness, Numbness, Headache, Head injury Psychiatric: denies: Depressed Endocrine: reports: Weight gain. denies: Weight loss PD PAST MEDICAL HISTORY - Past Medical History Cardiovascular: Hypertension Respiratory: Asthma, COPD, Pneumonia Neuro: Parkinson's Endocrine/Autoimmune: Type 2 diabetes, HyPOthyroidism GI: GERD, Chronic constipation : Incontinence HEENT: None Psych: Depression, Anxiety Musculoskeletal: None Derm: None - Past Surgical History Past Surgical History: Yes Ortho: Spine surgery - Present Medications Home Medications: Ambulatory Orders Medication Instructions Recorded Confirmed Acetaminophen [Tylenol] 325 mg PO Q4HR PRN 12/10/14 04/15/17 Carbidopa/Levodopa [Carbidopa-Levo 2.5 tab PO 0600,1200,1800,2300 12/10/1404/15 25-100 mg Odt] L.acidoph,Paracasei, B.lactis 1 cap PO DAILY 12/10/14 04/15/17 [Probiotic] Levothyroxine Sodium 25 mcg PO DAILY 12/10/14 04/15/17 Melatonin 5 mg PO QPM 12/10/14 04/15/17 Multivitamin [Multi-Vitamin Daily] 1 tab PO DAILY 12/10/14 04/15/17 Mupirocin 2% Oint [Bactroban 2% 1 applic TOP BID 12/10/14 04/15/17 Oint] Nystatin Cream [Mycostatin Cream] 1 applic TOP BID 12/10/14 04/15/17 Rasagiline [Azilect] 1 mg PO DAILY 12/10/14 04/15/17 Benzonatate [Tessalon Perle] 100 mg PO Q6H PRN #20 capsule 03/09/15 04/15/17 Docusate Sodium [Stool Softener] 2 tab BID 04/25/15 04/15/17 Fluticasone/Salmeterol [Advair 1 puffs INH BID 04/25/15 04/15/17 100-50 Diskus] Ibuprofen 400 mg PO BID PRN 04/25/15 04/15/17 Albuterol [Ventolin Hfa] 2 puffs INH Q6H PRN 04/26/15 04/15/17 Levalbuterol Tartrate [Xopenex Hfa] 1 puffs IH Q4H PRN 04/26/15 04/15/17 Nystatin 1 applic TOP BID 04/26/15 04/15/17 HYDROcod/ACETAM 5/325 [[place] 5/325] 1 - 2 ea PO Q6H PRN 05/28/16 04/15/17 Insulin Aspart [Novolog] 9 unit SQ QDAC 05/28/16 04/15/17 Insulin Glargine,Hum.rec.anlog 35 unit SQ DAILY 05/28/16 04/15/17 [Lantus Solostar] Losartan [Cozaar] 25 mg PO DAILY 05/28/16 04/15/17 Magnesium 500 mg PO QPM 05/28/16 04/15/17 Omeprazole [PriLOSEC] 20 mg PO DAILY 05/28/16 04/15/17 Senna [Senokot] 8.6 mg PO DAILY 05/28/16 04/15/17 Naproxen 375 mg PO BID #20 tablet 04/15/17 Tramadol HCl 50 mg PO Q6H PRN #20 tablet 04/15/17 Omeprazole [PriLOSEC] 20 mg PO BID #28 capsule 09/08/17 Tramadol HCl 50 mg PO Q6H PRN #20 tablet 09/08/17 - Allergies Allergies/Adverse Reactions: Allergies Allergy/AdvReac Type Severity Reaction Status Date / Time erythromycin base Allergy Unknown Unknown Verified 09/08/17 06:44 cheese Allergy Unknown Verified 09/08/17 06:44 furosemide [From Lasix] Allergy Unknown Verified 09/08/17 06:44 ibuprofen Allergy Unknown Verified 09/08/17 06:44 lisinopril Allergy Unknown Verified 09/08/17 06:44 zolpidem Allergy Unknown Verified 09/08/17 06:44 Penicillins AdvReac Severe Hives Verified 09/08/17 06:44 flour Allergy Unknown Uncoded 09/08/17 06:44 - Social History Does the pt smoke?: No Smoking Status: Never smoker Does the pt drink ETOH?: No Does the pt have substance abuse?: No - Family History Family history: reports: Non contributory - Immunizations Immunizations are current?: Yes - POLST Patient has POLST: Yes PD ED PE NORMAL - Vitals Vital signs reviewed: Yes - General General: Alert and oriented X 3, No acute distress, Well developed/nourished - HEENT HEENT: Ears normal, Moist mucous membranes, Pharynx benign - Neck Neck: Supple, no meningeal sign, No adenopathy, Other (some tenderness left upper cervical area. ) - Cardiac Cardiac: RRR, No murmur - Respiratory Respiratory: Clear bilaterally, Other (no chestwall tenderness) - Abdomen Abdomen: Soft, Non tender - Back Back: No CVA TTP - Derm Derm: Normal color, Warm and dry, Other (right lower abd under abd pannus and in inguinal area with superficial redness without breakdown nor purulence c/w yeast infection. ) - Extremities Extremities: No deformity, No tenderness to palpate, No calf tenderness / cord, Other (1+ edema in both lower legs. ) - Neuro Neuro: Alert and oriented X 3, No motor deficit (general weakness noted. No tremors at this time. ), No sensory deficit, Normal speech Eye Opening: Spontaneous Motor: Obeys Commands Verbal: Oriented GCS Score: 15 Results - Vitals Vitals: Vital Signs - 24 hr 09/08/17 09/08/17 09/08/17 06:39 09:13 11:01 Temperature 36.2 C L 36.8 C Heart Rate 83 70 79 Respiratory 18 16 19 Rate Blood Pressure 121/60 170/82 H 169/53 H O2 Saturation 95 96 98 Oxygen O2 Source Room air - EKG (time done) 06:41 Rate: Rate (enter#) (76) Rhythm: NSR [place]: Normal Intervals: Normal [place] QRS: Normal Ischemia: Normal ST segments. No: ST elevation c/w ischemia, ST depression Compare to prior EKG: Old EKG unavailable - Labs Labs: Laboratory Tests 09/08/17 09/08/17 09/08/17 06:59 06:59 06:59 WBC 8.0 RBC 5.02 Hgb 12.5 Hct 38.2 MCV 76.1 L MCH 24.9 L MCHC 32.7 RDW 16.0 H Plt Count 305 MPV 7.4 L Neut # 5.8 Lymph # 1.4 L [place] # 0.6 Eos # 0.1 Baso # 0.0 Absolute Nucleated RBC 0.00 Nucleated RBC % 0.0 Sodium 137 Potassium 4.1 Chloride 103 Carbon Dioxide 24 Anion Gap 10.0 BUN 13 Creatinine 0.9 Estimated GFR (MDRD) 62 L Glucose 138 H Calcium 9.1 Magnesium Total Bilirubin 0.6 AST 33 ALT 24 Alkaline Phosphatase 104 Total Creatine Kinase Troponin I < 0.04 C-Reactive Protein B-Natriuretic Peptide Total Protein 6.7 Albumin 3.3 Globulin 3.4 Albumin/Globulin Ratio 1.0 Lipase 11 L Urine Color Urine Clarity Urine pH Ur Specific [place] Urine Protein Urine Glucose (UA) Urine Ketones Urine Occult Blood Urine Nitrite Urine Bilirubin Urine Urobilinogen Ur Leukocyte Esterase Ur Microscopic Review Urine Culture Comments 09/08/17 09/08/17 09/08/17 06:59 06:59 09:05 WBC RBC Hgb Hct MCV MCH MCHC RDW Plt Count MPV Neut # Lymph # [place] # Eos # Baso # Absolute Nucleated RBC Nucleated RBC % Sodium Potassium Chloride Carbon Dioxide Anion Gap BUN Creatinine Estimated GFR (MDRD) Glucose Calcium Magnesium 2.0 Total Bilirubin AST ALT Alkaline Phosphatase Total Creatine Kinase 106 Troponin I C-Reactive Protein 2.3 H B-Natriuretic Peptide 30 Total Protein Albumin Globulin Albumin/Globulin Ratio Lipase Urine Color YELLOW Urine Clarity CLEAR Urine pH 7.0 Ur Specific [place] 1.010 Urine Protein NEGATIVE Urine Glucose (UA) NEGATIVE Urine Ketones NEGATIVE Urine Occult Blood NEGATIVE Urine Nitrite NEGATIVE Urine Bilirubin NEGATIVE Urine Urobilinogen 0.2 (NORMAL) Ur Leukocyte Esterase NEGATIVE Ur Microscopic Review NOT INDICATED Urine Culture Comments NOT INDICATED - Rads (name of study) chest Radiology: Prelim report reviewed, EMP read contemporaneously (no acute process) PD MEDICAL DECISION MAKING - ED course Complexity details: considered differential, d/w patient Departure - Departure Disposition: 01 Home, Self Care Clinical Impression: Esophageal pain Chest pain Qualifiers: Chest pain type: precordial pain Qualified Code(s): R07.2 - Precordial pain Neck strain Qualifiers: Encounter type: initial encounter Qualified Code(s): S16.1XXA - Strain of muscle, fascia and tendon at neck level, initial encounter Fall from slip, trip, or stumble Qualifiers: Encounter type: initial encounter Qualified Code(s): W01.0XXA - Fall on same level from slipping, tripping and stumbling without subsequent striking against object, initial encounter Condition: Stable Record reviewed to determine appropriate education?: Yes Instructions: ED GERD, ED Sprain Strain Neck Follow-Up: Ray Irvin DO [Primary Care Provider] - Prescriptions: Omeprazole [PriLOSEC] 20 mg PO BID #28 capsule Tramadol HCl 50 mg PO Q6H PRN #20 tablet PRN Reason: Pain Comments: Your neck CT scan does not show any fractures. There is some mild arthritis in the neck. The pain seems likely to be just muscle and ligament pain. Do gentle range of motion for it and massage or local treatments are good. I would suggest ibuprofen 400 mg twice daily for 5 or 6 days. This is on your medication list already that can be used. To that add Tylenol or tramadol if needed for pain. The chest pain does not appear to be heart or lung related. I believe it is from reflux. Increase your omeprazole from once daily to twice daily for the next couple of weeks and see how you do. Add an antacid such as Mylanta every 4 hours if needed for chest discomfort. Follow-up with Dr. Schmitz. Discharge Date/Time: 09/08/17 11:02
[2017-09-08 07:09] LABS: BASOPHILS % (AUTO) 0.4 %; EOSINOPHILS # (AUTO) 0.1 10^3/uL (0.0-0.7); EOSINOPHILS % (AUTO) 1.1 %; HGB - HEMOGLOBIN 12.5 g/dL (12.0-16.0); LYMPHOCYTES # (AUTO) 1.4 10^3/uL (1.5-3.5); LYMPHOCYTES % (AUTO) 17.8 %; MEAN CORPUSCULAR HEMOGLOBIN 24.9 pg (27.0-31.0); MEAN CORPUSCULAR HGB CONC 32.7 g/dL (32.0-36.0); MEAN CORPUSCULAR VOLUME 76.1 fL (81.0-99.0); MEAN PLATELET VOLUME 7.4 fL (7.9-10.8); MONOCYTES # (AUTO) 0.6 10^3/uL (0.0-1.0); MONOCYTES % (AUTO) 7.5 %; NEUTROPHILS # (AUTO) 5.8 10^3/uL (1.5-6.6); NEUTROPHILS % (AUTO) 73.2 %; PLT - PLATELET COUNT 305 10^3/uL (130-450); RED BLOOD COUNT 5.02 10^6/uL (4.20-5.40)
[2017-09-08 07:22] LABS: ALBUMIN 3.3 g/dL (3.2-5.5); BILIRUBIN,TOTAL 0.6 mg/dL (0.2-1.0); CALCIUM 9.1 mg/dL (8.5-10.3); CREATININE 0.9 mg/dL (0.4-1.0); TOTAL PROTEIN 6.7 g/dL (6.7-8.2)
[2017-09-08] MEDS ORDERED: LIDOCAINE VISCOUS 2% 15 ML UDC MM STA (07:33)
[2017-09-08] MEDS ORDERED: MAG HYDROX/AL HYDROX/SIMETH 30 ML UDC PO STA (07:33)
[2017-09-08] MEDS ORDERED: ACETAMINOPHEN 325 MG TABLET PO STA (07:34)
--- NOTE | 2017-09-08 07:57 | XRAY Report ---
EXAM: CHEST RADIOGRAPHY EXAM DATE: 09/08/2017 07:50 AM. CLINICAL HISTORY: Chest pain. COMPARISON: 05/24/2016. TECHNIQUE: 2 views. FINDINGS: Lungs/Pleura: No focal opacities evident. No pleural effusion. No pneumothorax. Normal volumes. Mediastinum: Heart and mediastinal contours are unremarkable with exception of known small hiatal her apolinar. Other: None. IMPRESSION: No acute process seen in the chest. [facility] Referring Provider Line: [phone] SITE ID: [id number]
[2017-09-08 08:09] LABS: CRP - C-REACTIVE PROTEIN 2.3 mg/dL (0-1.0)
--- NOTE | 2017-09-08 08:43 | CT Report ---
EXAM: CT CERVICAL SPINE WITHOUT CONTRAST DATE: 09/08/2017 08:03 AM. HISTORY: Fall with neck pain recently. COMPARISONS: 03/31/2017. TECHNIQUE: Thin-section axial images were acquired of the cervical spine without contrast. Post-proce ssing: Coronal and sagittal reformats. Other: None. In accordance with CT protocol optimization, one or more of the following dose reduction techniques w ere utilized for this exam: automated exposure control, adjustment of mA and/or KV based on patient s ize, or use of iterative reconstructive technique. FINDINGS: Alignment: No scoliosis or spondylolisthesis. Bones: No fracture or bone lesion. Interspace Levels/Facets: Moderate to severe multilevel decreased disk height with posterior disk ost eophyte complexes, most pronounced at C5-C6 and C6-C7, similar to prior. Moderate to severe multileve l facet arthropathy, left worse than right, is also similar to prior. Other: No prevertebral soft tissue thickening. Approximately 1.5 cm diameter hypodense lesion in the right lobe of the thyroid gland. The lung apices are clear. IMPRESSION: 1. No acute fracture or subluxation of the cervical spine. 2. Degenerative cervical spondylosis as before. 3. Right thyroid nodule. Consider thyroid ultrasound for further evaluation if this has not already b een performed. [facility] Referring Provider Line: [phone] SITE ID: [id number]
--- NOTE | 2017-09-08 08:43 | CT Preliminary Report ---
Exam: CT CERVICAL SPINE W/O IMPRESSION: 1. No acute fracture or subluxation of the cervical spine. 2. Degenerative cervical spondylosis as before. 3. Right thyroid nodule. Consider thyroid ultrasound for further evaluation if this has not already b een performed. [facility] SITE ID: [id number]
[2017-09-08 09:28] LABS: BILIRUBIN,URINE NEGATIVE (NEGATIVE); GLUCOSE, URINE (UA) NEGATIVE (NEGATIVE); KETONES,URINE (UA) NEGATIVE (NEGATIVE); LEUKOCYTE ESTERASE, URINE NEGATIVE (NEGATIVE); NITRITE,URINE NEGATIVE (NEGATIVE); OCCULT BLOOD,URINE NEGATIVE (NEGATIVE); PROTEIN,URINE NEGATIVE (NEGATIVE); UROBILINOGEN,URINE 0.2 (NORMAL) E.U./dL (NORMAL)
[2017-09-08 09:30] LABS: CLARITY,URINE CLEAR (CLEAR)
[2017-09-08] MEDS ORDERED: traMADol 50 MG TABLET PO STA (10:20)
[2017-09-08 11:02] VITALS: BP 169/53
== END 2017-09-08 11:02 | disposition home or self-care (01) ==
LOC: EDUNIT# → ED 06:33
DX: R10.13 Epigastric pain (principal); R07.2 Precordial pain; S16.1XXA Strain of muscle, fascia and tendon at neck level, initial encounter; W19.XXXA Unspecified fall, initial encounter; I10 Essential (primary) hypertension; G20 Parkinson's disease; E03.9 Hypothyroidism, unspecified; E11.9 Type 2 diabetes mellitus without complications; Z79.4 Long term (current) use of insulin
CPT/HCPCS: 36415; 51701; 71046; 72125; 80053; 81003; 82550; 83690; 83735; 83880; 84484; 85025; 86140; 93005; 99283; 99284; A9270; 81001; 87086

== ENCOUNTER 2017-10-19 04:56 | Outpatient (CLI) | payer MEDICARE, OTHER | END 2017-10-19 04:57 | disposition critical access hospital (66) | LOC: EMS 04:56 | PROVIDERS: ATTEND Surgery | DX: R41.82 Altered mental status, unspecified (principal); R20.0 Anesthesia of skin; R42 Dizziness and giddiness; M54.2 Cervicalgia; M25.511 Pain in right shoulder; W19.XXXA Unspecified fall, initial encounter | CPT/HCPCS: A0425; A0429 ==

== ENCOUNTER 2017-10-19 05:15 | Emergency (ER) | payer MEDICARE, OTHER ==
--- NOTE | 2017-10-19 05:32 | ED Physician Documentation ---
PD HPI ALTERED MENTAL STATUS - Stated complaint Stated Complaint: ALOC - Chief complaint Chief Complaint: Neuro - History obtained from History obtained from: Patient, EMS - History of Present Illness Timing - onset: Today Timing - details: Gradual onset, Now resolved Quality / character: Less responsive Associated symptoms: No: Fever, Headache, General weakness Contributing factors: Diabetic Basline status: Alert and oriented X 3 Similar symptoms before: Has not had sx before Recently seen: Not recently seen - Additional information Additional information: Patient is a 72 year old female with multiple co-morbidities who was sent in by her assisted living facility for presumed altered mental status and facial numbness. According to patient and ems patient fell yesterday during pt. patient did not lose consciousness. they also stated that patient had right arm pain and right neck pain. Upon initial evaluation in the emergency department patient was awake and alert. patient stated that she was just a little sore. Patient has DNR/DNI comfort measure only polst that states that she does not want to be brought to the hospital. Patient stated that she felt ok and did not want anything done. Review of Systems Constitutional: denies: Fever, Chills Eyes: denies: Decreased vision, Photophobia Ears: reports: Reviewed and negative Nose: reports: Reviewed and negative Throat: reports: Reviewed and negative Cardiac: denies: Chest pain / pressure Respiratory: denies: Cough GI: denies: Nausea, Vomiting : denies: Dysuria, Frequency, Hesitancy Skin: denies: Abrasion (s), Laceration (s) Musculoskeletal: reports: Back pain, Extremity pain. denies: Joint pain Neurologic: reports: Numbness. denies: Generalized weakness, Focal weakness Immunocompromised: denies: Immunocompromised PD PAST MEDICAL HISTORY - Past Medical History Cardiovascular: Hypertension Respiratory: Asthma, COPD, Pneumonia Neuro: Parkinson's Endocrine/Autoimmune: Type 2 diabetes, HyPOthyroidism GI: GERD, Chronic constipation : Incontinence HEENT: None Psych: Depression, Anxiety Musculoskeletal: None Derm: None - Past Surgical History Past Surgical History: Yes Ortho: Spine surgery - Present Medications Home Medications: Ambulatory Orders Medication Instructions Recorded Confirmed Acetaminophen [Tylenol] 325 mg PO Q4HR PRN 12/10/14 04/15/17 Carbidopa/Levodopa [Carbidopa-Levo 2.5 tab PO 0600,1200,1800,2300 12/10/1404/15 25-100 mg Odt] L.acidoph,Paracasei, B.lactis 1 cap PO DAILY 12/10/14 04/15/17 [Probiotic] Levothyroxine Sodium 25 mcg PO DAILY 12/10/14 04/15/17 Melatonin 5 mg PO QPM 12/10/14 04/15/17 Multivitamin [Multi-Vitamin Daily] 1 tab PO DAILY 12/10/14 04/15/17 Mupirocin 2% Oint [Bactroban 2% 1 applic TOP BID 12/10/14 04/15/17 Oint] Nystatin Cream [Mycostatin Cream] 1 applic TOP BID 12/10/14 04/15/17 Rasagiline [Azilect] 1 mg PO DAILY 12/10/14 04/15/17 Benzonatate [Tessalon Perle] 100 mg PO Q6H PRN #20 capsule 03/09/15 04/15/17 Docusate Sodium [Stool Softener] 2 tab BID 04/25/15 04/15/17 Fluticasone/Salmeterol [Advair 1 puffs INH BID 04/25/15 04/15/17 100-50 Diskus] Ibuprofen 400 mg PO BID PRN 04/25/15 04/15/17 Albuterol [Ventolin Hfa] 2 puffs INH Q6H PRN 04/26/15 04/15/17 Levalbuterol Tartrate [Xopenex Hfa] 1 puffs IH Q4H PRN 04/26/15 04/15/17 Nystatin 1 applic TOP BID 04/26/15 04/15/17 HYDROcod/ACETAM 5/325 [[place] 5/325] 1 - 2 ea PO Q6H PRN 05/28/16 04/15/17 Insulin Aspart [Novolog] 9 unit SQ QDAC 05/28/16 04/15/17 Insulin Glargine,Hum.rec.anlog 35 unit SQ DAILY 05/28/16 04/15/17 [Lantus Solostar] Losartan [Cozaar] 25 mg PO DAILY 05/28/16 04/15/17 Magnesium 500 mg PO QPM 05/28/16 04/15/17 Omeprazole [PriLOSEC] 20 mg PO DAILY 05/28/16 04/15/17 Senna [Senokot] 8.6 mg PO DAILY 05/28/16 04/15/17 Naproxen 375 mg PO BID #20 tablet 04/15/17 Tramadol HCl 50 mg PO Q6H PRN #20 tablet 04/15/17 Omeprazole [PriLOSEC] 20 mg PO BID #28 capsule 09/08/17 Tramadol HCl 50 mg PO Q6H PRN #20 tablet 09/08/17 - Allergies Allergies/Adverse Reactions: Allergies Allergy/AdvReac Type Severity Reaction Status Date / Time erythromycin base Allergy Unknown Unknown Verified 10/19/17 05:38 cheese Allergy Unknown Verified 10/19/17 05:38 furosemide [From Lasix] Allergy Unknown Verified 10/19/17 05:38 ibuprofen Allergy Unknown Verified 10/19/17 05:38 lisinopril Allergy Unknown Verified 10/19/17 05:38 zolpidem Allergy Unknown Verified 10/19/17 05:38 Penicillins AdvReac Severe Hives Verified 10/19/17 05:38 flour Allergy Unknown Uncoded 10/19/17 05:38 - Social History Does the pt smoke?: No Smoking Status: Never smoker Does the pt drink ETOH?: No Does the pt have substance abuse?: No - Immunizations Immunizations are current?: Yes - POLST Patient has POLST: Yes PD ED PE NORMAL - Vitals Vital signs reviewed: Yes - General General: Alert and oriented X 3, No acute distress - HEENT HEENT: Atraumatic, PERRL, Moist mucous membranes - Neck Neck: Supple, no meningeal sign, No bony TTP - Cardiac Cardiac: RRR, No murmur - Respiratory Respiratory: No respiratory distress - Abdomen Abdomen: Soft, Non distended - Derm Derm: Normal color, No rash - Extremities Extremities: No deformity - Neuro Neuro: Alert and oriented X 3, No motor deficit PD ED PE EXPANDED - Neuro Neuro: Left face (mildly decreased sensation of patient's left forehead but nowhere else) Results - Vitals Vitals: Vital Signs - 24 hr 10/19/17 10/19/17 05:15 05:37 Temperature 36.9 C Heart Rate 81 79 Respiratory 19 25 H Rate Blood Pressure 148/83 H 158/73 H O2 Saturation 95 97 Oxygen O2 Source Room air PD MEDICAL DECISION MAKING - ED course Complexity details: reviewed old records, re-evaluated patient, considered differential, d/w patient ED course: Patient was seen and examined at bedside. patient was well appearing and was awake, alert and oriented. Patient's polst was reviewed and patient did not want anything done. Patient was in no pain and denied any complaints. Patient was offered pain medication, laboratory testing and imaging but she did not want any. Patient was of sound mind and was stable for discharge with outpatient follow up. Departure - Departure Disposition: 01 Home, Self Care Clinical Impression: Fall Condition: Good Instructions: ED Prevention Fall Follow-Up: primary,care provider [Other] - As Needed Comments: It is your right to not be transported to the hospital or have tests performed. You should follow up with your doctor as needed. You can take motrin or tylenol as needed for pain.
[2017-10-19 06:23] VITALS: BP 157/77
== END 2017-10-19 06:23 | disposition home or self-care (01) ==
LOC: EDUNIT# → ED 05:15
DX: M54.2 Cervicalgia (principal); W18.39XA Other fall on same level, initial encounter; Y92.129 Unspecified place in nursing home as the place of occurrence of the external cause; I10 Essential (primary) hypertension; J44.9 Chronic obstructive pulmonary disease, unspecified; G20 Parkinson's disease; E11.9 Type 2 diabetes mellitus without complications; E03.9 Hypothyroidism, unspecified; K21.9 Gastro-esophageal reflux disease without esophagitis; Z79.4 Long term (current) use of insulin; Z66 Do not resuscitate
CPT/HCPCS: 99283; 99284

== ENCOUNTER 2017-10-23 08:00 | Outpatient (CLI) | payer MEDICARE, OTHER ==
[2017-10-23 19:14] LABS: BASOPHILS % (AUTO) 0.4 %; EOSINOPHILS # (AUTO) 0.1 10^3/uL (0.0-0.7); EOSINOPHILS % (AUTO) 0.6 %; HGB - HEMOGLOBIN 12.9 g/dL (12.0-16.0); LYMPHOCYTES # (AUTO) 1.8 10^3/uL (1.5-3.5); LYMPHOCYTES % (AUTO) 20.2 %; MEAN CORPUSCULAR HEMOGLOBIN 24.4 pg (27.0-31.0); MEAN CORPUSCULAR HGB CONC 31.6 g/dL (32.0-36.0); MEAN CORPUSCULAR VOLUME 77.1 fL (81.0-99.0); MEAN PLATELET VOLUME 8.4 fL (7.9-10.8); MONOCYTES # (AUTO) 0.6 10^3/uL (0.0-1.0); MONOCYTES % (AUTO) 6.2 %; NEUTROPHILS # (AUTO) 6.6 10^3/uL (1.5-6.6); NEUTROPHILS % (AUTO) 72.6 %; PLT - PLATELET COUNT 321 10^3/uL (130-450); RED BLOOD COUNT 5.29 10^6/uL (4.20-5.40); RED CELL DISTRIBUTION WIDTH 16.1 % (12.0-15.0)
[2017-10-23 19:21] LABS: ALBUMIN 3.8 g/dL (3.2-5.5); ALBUMIN/GLOBULIN RATIO 1.2 (1.0-2.2); ALKALINE PHOSPHATASE 96 IU/L (42-121); ALT ALANINE AMINOTRANSFERASE 11 IU/L (10-60); AST ASPARTATE AMINOTRANSFERASE 35 IU/L (10-42); BILIRUBIN,TOTAL 0.4 mg/dL (0.2-1.0); BUN - BLOOD UREA NITROGEN 16 mg/dL (6-20); CARBON DIOXIDE - CO2 23 mmol/L (21-32); CHLORIDE 102 mmol/L (101-111); CHOL/HDL RATIO 3.5 (<4.4); CHOLESTEROL 183 mg/dL; CREATININE 0.9 mg/dL (0.4-1.0); GFR - MDRD 62 (>89); GLUCOSE 221 mg/dL (70-100); HDL CHOLESTEROL 53 mg/dL; LDL CHOLESTEROL,CALCULATED 98 mg/dL; LDL/HDL RATIO 1.8 (<4.4); SODIUM 133 mmol/L (135-145); TOTAL PROTEIN 6.9 g/dL (6.7-8.2); VLDL CHOLESTEROL 32 mg/dL
[2017-10-23 19:25] LABS: HB2 TOTAL 14.8 g/dL; HEMOGLOBIN A1C 1.05 g/dL; HEMOGLOBIN A1C % 8.6 % (4.6-6.2)
[2017-10-23 19:29] LABS: THYROID STIMULATING HORMONE 1.68 uIU/mL (0.34-5.60)
== END 2017-10-23 08:01 | disposition home or self-care (01) ==
LOC: LAB.WCP 08:00
PROVIDERS: ATTEND Family Medicine
DX: E11.9 Type 2 diabetes mellitus without complications (principal); G20 Parkinson's disease; R20.0 Anesthesia of skin
CPT/HCPCS: 36415; 80053; 80061; 82306; 82607; 83036; 83721; 84443; 85025

== ENCOUNTER 2017-12-23 11:02 | Outpatient (CLI) | payer MEDICARE, OTHER ==
--- NOTE | 2017-12-23 14:02 | Ultrasound Report ---
LEFT BREAST ULTRASOUND: 12/23/2017 CLINICAL INDICATION: Palpable abnormality left upper inner quadrant. TECHNIQUE: Real-time scanning was performed with packaging sales representative static images obtained. FINDINGS: Ultrasound of the palpable region identified by the patient was performed. Unremarkable parenchymal lobules are seen. No discrete solid or cystic masses appreciated. No sonographically suspicious findings are seen. IMPRESSION: NEGATIVE EXAMINATION. RECOMMENDATION: Routine annual screening unless otherwise clinically indicated. BIRADS CATEGORY 1-NEGATIVE. TD: 12/23/2017 13:38
--- NOTE | 2017-12-23 14:58 | Mammography Report ---
DIAGNOSTIC BILATERAL MAMMOGRAM: 12/23/2017 CLINICAL INDICATION: Palpable abnormality left upper inner quadrant. COMPARISON: 09/22/2015, 10/08/2012, 01/25/2012, 09/05/2011, 12/28/2010, 12/21/2010. TECHNIQUE: Bilateral CC and MLO views, left true lateral view. Positioning is markedly limited by the patient's general condition. FINDINGS: The breasts demonstrate fatty replacement bilaterally. Coarse, typically benign calcifications are present. No suspicious masses, clustered microcalcifications, or regions of architectural distortion are identified. Specifically, no mammographic abnormality is appreciated in the left upper inner quadrant, at the site indicated by the marker. Please also refer to left breast ultrasound of the same day. IMPRESSION: BENIGN FINDINGS. RECOMMENDATION: Routine annual screening unless otherwise clinically indicated. BIRADS CATEGORY 2 - BENIGN FINDINGS. STANDARD QUALIFYING STATEMENTS: 1. This examination was reviewed with the aid of Computer-Aided Detection (CAD). 2. A negative or benign imaging report should not delay biopsy if clinically suspicious findings are present. Consider surgical consultation if warranted. More than 5% of cancers are not identified by imaging. 3. Dense breasts may obscure an underlying neoplasm. TD: 12/23/2017 14:11
== END 2017-12-23 11:03 | disposition home or self-care (01) ==
LOC: DI 11:02
PROVIDERS: ATTEND Family Medicine
DX: N63.22 Unspecified lump in the left breast, upper inner quadrant (principal)
CPT/HCPCS: 76642; 77066

== ENCOUNTER 2017-12-23 11:12 | Outpatient (CLI) | payer MEDICARE, OTHER ==
--- NOTE | 2017-12-23 15:02 | MRI Report ---
EXAM: MRI BRAIN WITHOUT CONTRAST EXAM DATE: 12/23/2017 12:42 PM. CLINICAL HISTORY: 72-year-old female NUMBNESS, PARKINSON DISEASE, DIABETES TYPE II. COMPARISON: CT head 03/31/2017 TECHNIQUE: Multiplanar, multisequence T1-weighted and fluid-sensitive MR sequences of the brain were performed. Sequences optimized for routine evaluation. Other: None. IV Contrast: None. FINDINGS: Brain Volume: Ghnx-fa-vlbhsnlp diffuse cerebral volume loss as well as cerebellar vermian volume loss with ex vacuo dilatation of the ventricles and sulci, slightly advanced for age. Parenchyma/Dura: No mass, acute infarct or hemorrhage. Moderate scattered T2/FLAIR hyperintense periv entricular, deep, and subcortical white matter lesions within cerebral hemispheres bilaterally. There is thinning and blurring of the pars compacta of substantia nigra (for example series 501 image 12). No parenchymal foci of susceptibility artifact. Ventricles/Cisterns: No hydrocephalus. No abnormal extra-axial fluid collection or hemorrhage. Orbits: Status post bilateral lens replacement surgery. The visualized orbits otherwise unremarkable. Sella Turcica: The pituitary gland, cavernous sinuses, suprasellar cistern and optic chiasm are unrem arkable. IAC: Symmetric and unremarkable. Vasculature: Normal signal flow void is seen in the major arterial structures at the skull base. Sinuses: No acute appearing sinus disease. Bones: No focal pathologic appearing marrow signal changes. Other: None. IMPRESSION: 1. No MRI evidence of acute intracranial abnormality. Specifically, no evidence of acute or subacute infarct, acute intracranial hemorrhage, mass, midline shift, or hydrocephalus. 2. Bixi-ky-mukilicr diffuse cerebral volume loss as well as cerebellar vermian volume loss with ex va cuo dilatation of the ventricles and sulci, slightly advanced for age. 3. Moderate scattered T2/FLAIR hyperintense periventricular, deep, and subcortical white matter lesio ns within cerebral hemispheres bilaterally. While nonspecific, these are favored to represent sequela of chronic microangiopathy. 4. There is thinning and blurring of the pars compacta of substantia nigra (for example series 501 im age 12). This is nonspecific but is associated with Parkinson's disease. [facility] Referring Provider Line: [phone] SITE ID: [id number]
== END 2017-12-23 11:13 | disposition home or self-care (01) ==
LOC: DI 11:12
PROVIDERS: ATTEND Family Medicine
DX: G20 Parkinson's disease (principal); R20.0 Anesthesia of skin; E11.9 Type 2 diabetes mellitus without complications; N63.22 Unspecified lump in the left breast, upper inner quadrant
CPT/HCPCS: 70551; 76642; 77066

== ENCOUNTER 2018-01-07 11:51 | Outpatient (CLI) | payer MEDICARE, OTHER ==
--- NOTE | 2018-01-07 18:53 | XRAY Report ---
Procedure Date: 01/07/2018 Accession Number: [id number] / [id number] Procedure: XR - Knee 2 View RT CPT Code: FULL RESULT: EXAM: Knee 2 View RT DATE: 01/07/2018 1:18 PM CLINICAL HISTORY: RIGHT SIDED KNEE PAIN COMPARISON: None. TECHNIQUE: 2 views. FINDINGS: Bones: Normal. No fractures or bone lesions. Joints: Normal. No effusion. No subluxations. Soft Tissues: Normal. No soft tissue swelling. IMPRESSION: Normal knee radiography. [facility]
== END 2018-01-07 11:52 | disposition home or self-care (01) ==
LOC: DI 11:51
PROVIDERS: ATTEND Family Medicine
DX: M25.561 Pain in right knee (principal)

== ENCOUNTER 2018-02-17 07:34 | Outpatient (CLI) | payer MEDICARE, OTHER | END 2018-02-17 07:35 | disposition critical access hospital (66) | LOC: EMS 07:34 | PROVIDERS: ATTEND Surgery | DX: M25.551 Pain in right hip (principal); M54.2 Cervicalgia; W19.XXXA Unspecified fall, initial encounter; Y92.092 Bedroom in other non-institutional residence as the place of occurrence of the external cause | CPT/HCPCS: A0425; A0429 ==

== ENCOUNTER 2018-02-17 07:52 | Emergency (ER) | payer MEDICARE, OTHER ==
--- NOTE | 2018-02-17 08:09 | ED Physician Documentation ---
PD HPI LOWER EXT INJURY - Stated complaint Stated Complaint: GLF - Chief complaint Chief Complaint: General - History obtained from History obtained from: Patient, EMS, Caregiver - History of Present Illness PD HPI LOW EXT INJURY LOCATION: Right, Hip, Other (lower back and back of head) Type of injury: Fall (she remembers losing balance and falling, but not much other details Poor memory per EMS/caregiver report. Was seen to fall backward/ side and did not have any reported LOC. Helped up but had pain in head/neck and also right posterior hip pain.) Where injury occurred: Other ([facility] care [facility]) Timing - onset: Today Timing - details: Abrupt onset Worsened by: Moving, Palpating, Other (weight bearing hurts right posterior hip. ) Associated symptoms: No: Weakness, Numbness, Swelling Contributing factors: No: Anticoagulated Review of Systems Unable to obtain: Dementia Cardiac: denies: Chest pain / pressure Respiratory: denies: Dyspnea GI: denies: Abdominal Pain Skin: denies: Laceration (s) Neurologic: reports: Headache (back of head and upper neck). denies: Focal weakness, Numbness PD PAST MEDICAL HISTORY - Past Medical History Cardiovascular: Hypertension Respiratory: Asthma, COPD, Pneumonia Endocrine/Autoimmune: Type 2 diabetes, HyPOthyroidism GI: GERD, Chronic constipation : Incontinence HEENT: None Psych: Depression, Anxiety Musculoskeletal: None Derm: None - Past Surgical History Past Surgical History: Yes Ortho: Spine surgery - Present Medications Home Medications: Ambulatory Orders Medication Instructions Recorded Confirmed Acetaminophen [Tylenol] 325 mg PO Q4HR PRN 12/10/14 04/15/17 Carbidopa/Levodopa [Carbidopa-Levo 2.5 tab PO 0600,1200,1800,2300 12/10/1404/15 25-100 mg Odt] L.acidoph,Paracasei, B.lactis 1 cap PO DAILY 12/10/14 04/15/17 [Probiotic] Levothyroxine Sodium 25 mcg PO DAILY 12/10/14 04/15/17 Melatonin 5 mg PO QPM 12/10/14 04/15/17 Multivitamin [Multi-Vitamin Daily] 1 tab PO DAILY 12/10/14 04/15/17 Mupirocin 2% Oint [Bactroban 2% 1 applic TOP BID 12/10/14 04/15/17 Oint] Nystatin Cream [Mycostatin Cream] 1 applic TOP BID 12/10/14 04/15/17 Rasagiline [Azilect] 1 mg PO DAILY 12/10/14 04/15/17 Benzonatate [Tessalon Perle] 100 mg PO Q6H PRN #20 capsule 03/09/15 04/15/17 Docusate Sodium [Stool Softener] 2 tab BID 04/25/15 04/15/17 Fluticasone/Salmeterol [Advair 1 puffs INH BID 04/25/15 04/15/17 100-50 Diskus] Ibuprofen 400 mg PO BID PRN 04/25/15 04/15/17 Albuterol [Ventolin Hfa] 2 puffs INH Q6H PRN 04/26/15 04/15/17 Levalbuterol Tartrate [Xopenex Hfa] 1 puffs IH Q4H PRN 04/26/15 04/15/17 Nystatin 1 applic TOP BID 04/26/15 04/15/17 HYDROcod/ACETAM 5/325 [[place] 5/325] 1 - 2 ea PO Q6H PRN 05/28/16 04/15/17 Insulin Aspart [Novolog] 9 unit SQ QDAC 05/28/16 04/15/17 Insulin Glargine,Hum.rec.anlog 35 unit SQ DAILY 05/28/16 04/15/17 [Lantus Solostar] Losartan [Cozaar] 25 mg PO DAILY 05/28/16 04/15/17 Magnesium 500 mg PO QPM 05/28/16 04/15/17 Omeprazole [PriLOSEC] 20 mg PO DAILY 05/28/16 04/15/17 Senna [Senokot] 8.6 mg PO DAILY 05/28/16 04/15/17 Naproxen 375 mg PO BID #20 tablet 04/15/17 Tramadol HCl 50 mg PO Q6H PRN #20 tablet 04/15/17 02/17/18 Omeprazole [PriLOSEC] 20 mg PO BID #28 capsule 09/08/17 Tramadol HCl 50 mg PO Q6H PRN #20 tablet 09/08/17 Amantadine HCl [Amantadine] 100 mg ORAL DAILY 02/17/18 02/17/18 - Allergies Allergies/Adverse Reactions: Allergies Allergy/AdvReac Type Severity Reaction Status Date / Time erythromycin base Allergy Unknown Unknown Verified 10/19/17 05:38 cheese Allergy Unknown Verified 10/19/17 05:38 furosemide [From Lasix] Allergy Unknown Verified 10/19/17 05:38 ibuprofen Allergy Unknown Verified 10/19/17 05:38 lisinopril Allergy Unknown Verified 10/19/17 05:38 zolpidem Allergy Unknown Verified 10/19/17 05:38 Penicillins AdvReac Severe Hives Verified 10/19/17 05:38 flour Allergy Unknown Uncoded 10/19/17 05:38 - Social History Does the pt smoke?: No Smoking Status: Never smoker Does the pt drink ETOH?: No Does the pt have substance abuse?: No - Immunizations Immunizations are current?: Yes - POLST Patient has POLST: Yes PD ED PE NORMAL - Vitals Vital signs reviewed: Yes - General General: No acute distress, Well developed/nourished, Other (does not know month but does know birthday. poor recall of recent event. ) - HEENT HEENT: Moist mucous membranes, Pharynx benign. No: Atraumatic (back of head with mild tenderness, without deformity. ) - Neck Neck: Supple, no meningeal sign, No bony TTP (but is tender just left laterally. ) - Cardiac Cardiac: RRR, No murmur - Respiratory Respiratory: Clear bilaterally - Abdomen Abdomen: Soft, Non tender - Female Female : Deferred - Rectal Rectal: Deferred - Back Back: No CVA TTP, No spinal TTP (but is tender at right sided lower cervical muscles area) - Derm Derm: Normal color, Warm and dry - Extremities Extremities: No tenderness to palpate, Normal ROM s pain, No edema, No calf tenderness / cord Results - Vitals Vitals: Vital Signs - 24 hr 02/17/18 02/17/18 02/17/18 07:59 09:59 11:41 Temperature 36.3 C L 36.6 C Heart Rate 90 82 92 Respiratory 16 16 16 Rate Blood Pressure 145/83 H 144/78 H 156/89 H O2 Saturation 94 94 96 Oxygen O2 Source Room air - Labs Labs: Laboratory Tests 02/17/18 02/17/18 09:15 09:15 WBC 9.0 RBC 4.89 Hgb 12.2 Hct 37.7 MCV 77.2 L MCH 24.9 L MCHC 32.3 RDW 16.1 H Plt Count 277 MPV 7.7 L Neut # (Auto) 7.2 H Lymph # (Auto) 1.1 L Nye # (Auto) 0.6 Eos # (Auto) 0.0 Baso # (Auto) 0.0 Absolute Nucleated RBC 0.01 Nucleated RBC % 0.1 Sodium 133 L Potassium 3.9 Chloride 103 Carbon Dioxide 23 Anion Gap 7.0 BUN 14 Creatinine 0.9 Estimated GFR (MDRD) 62 L Glucose 181 H Calcium 8.5 Magnesium 2.2 Total Bilirubin 0.8 AST 45 H ALT < 10 L Alkaline Phosphatase 102 Total Protein 6.6 L Albumin 3.1 L Globulin 3.5 Albumin/Globulin Ratio 0.9 L Lipase 21 L - Rads (name of study) head and neck CT Radiology: Prelim report reviewed (no fractures) lumbar and pelvic CT Radiology: Prelim report reviewed (no fractures seen) PD MEDICAL DECISION MAKING - ED course Complexity details: reviewed results, considered differential, d/w patient - Sepsis Event Vital Signs: Vital Signs - 24 hr 02/17/18 02/17/18 02/17/18 07:59 09:59 11:41 Temperature 36.3 C L 36.6 C Heart Rate 90 82 92 Respiratory 16 16 16 Rate Blood Pressure 145/83 H 144/78 H 156/89 H O2 Saturation 94 94 96 Oxygen O2 Source Room air Departure - Departure Disposition: 01 Home, Self Care Clinical Impression: Fall from slip, trip, or stumble Qualifiers: Encounter type: initial encounter Qualified Code(s): W01.0XXA - Fall on same level from slipping, tripping and stumbling without subsequent striking against object, initial encounter Neck strain Qualifiers: Encounter type: initial encounter Qualified Code(s): S16.1XXA - Strain of muscle, fascia and tendon at neck level, initial encounter Contusion of lower back Qualifiers: Encounter type: initial encounter Qualified Code(s): S30.0XXA - Contusion of lower back and pelvis, initial encounter Condition: Stable Record reviewed to determine appropriate education?: Yes Instructions: ED Low Back Pain Injury, ED Sprain Strain Neck Follow-Up: Ray Irvin DO [Primary Care Provider] - Comments: Continue usual medications. Tylenol every 6 hours if needed for pains. There are no signs of fractures nor acute injury on your scans of the head neck low back or pelvis. He will still be sore for several days. Discharge Date/Time: 02/17/18 12:00
[2018-02-17] MEDS ORDERED: NAPROXEN 250 MG TABLET PO STA (08:27)
[2018-02-17] MEDS ORDERED: ACETAMINOPHEN 325 MG TABLET PO STA (08:27)
--- NOTE | 2018-02-17 09:22 | CT Report ---
Procedure Date: 02/17/2018 Accession Number: [id number] / [id number] Procedure: CT - Head W/O CPT Code: FULL RESULT: EXAM: CT HEAD EXAM DATE: 02/17/2018 08:59 AM. CLINICAL HISTORY: Fall with injury head/neck/low back. COMPARISON: 03/31/2017. TECHNIQUE: Multiaxial CT images were obtained from the foramen magnum to the vertex. Reformats: Sagittal and coronal. IV contrast: None. In accordance with CT protocol optimization, one or more of the following dose reduction techniques were utilized for this exam: automated exposure control, adjustment of mA and/or KV based on patient size, or use of iterative reconstructive technique. FINDINGS: Parenchyma: Parenchymal volume loss with periventricular regions of low attenuation. No evidence of acute vascular insult or acute parenchymal hemorrhage. No midline shift. No mass effect. Extraaxial Spaces: Normal for age. No subdural or epidural collections identified. Ventricles: Mildly prominent ventricles, unchanged. Sinuses and Orbits: Imaged paranasal sinuses, orbits, and mastoids show no significant abnormality. Bones: No acute fracture or bony lesion. Incomplete fusion of the posterior arch of C1, a normal variant, unchanged. Other: Changes are seen from bilateral lens surgery. Otherwise, globes and orbits are unremarkable. Vascular calcifications. IMPRESSION: 1. No acute intracranial abnormality is identified. 2. Parenchymal volume loss and chronic white matter changes. [facility]
--- NOTE | 2018-02-17 09:24 | CT Report ---
Procedure Date: 02/17/2018 Accession Number: [id number] / [id number] Procedure: CT - Pelvis W/O CPT Code: FULL RESULT: EXAM: CT BONY PELVIS WITHOUT CONTRAST EXAM DATE: 02/17/2018 08:52 AM. CLINICAL HISTORY: Fall. Bilateral pelvic and hip pain. COMPARISON: Hip w/pelvis 2-3v left 01/29/2017. TECHNIQUE: Thin-section axial images were acquired of the pelvis without contrast. Post-processing: Coronal and sagittal reformats. Other: None. In accordance with CT protocol optimization, one or more of the following dose reduction techniques were utilized for this exam: automated exposure control, adjustment of mA and/or KV based on patient size, or use of iterative reconstructive technique. FINDINGS: Bones: No fracture or bone lesion. Sacroiliac Joints: There is subarticular sclerosis. The findings are consistent with mild osteoarthritis. Symphysis Pubis: Unremarkable. Right Hip: Mild right hip joint space narrowing with subarticular sclerosis and cyst formation, as well as acetabula and femoral head osteophytes consistent with osteoarthritis. Left Hip: Similar findings to the right side. Musculature: Normal. No fatty atrophy. Pelvic Cavity: There is marked fecal loading of the rectum, with bladder distention. The findings may indicate urinary retention. Moderate degenerative change of the lower lumbar spine. Other: No lymphadenopathy. No free air or free fluid. The other visualized soft tissues are unremarkable. IMPRESSION: 1. No visible fracture. If an occult fracture is still suspected, nuclear medicine bone scan or MRI is recommended. 2. Pyck-di-dmlrevef bilateral hip osteoarthritis. There is moderate degenerative change of the lower lumbar spine. 3. Fecal loading with bladder distention raising the possibility of urinary retention. [facility]
--- NOTE | 2018-02-17 09:26 | CT Report ---
Procedure Date: 02/17/2018 Accession Number: [id number] / [id number] Procedure: CT - Cervical Spine W/O CPT Code: FULL RESULT: EXAM: CT CERVICAL SPINE WITHOUT CONTRAST DATE: 02/17/2018 08:52 AM. HISTORY: Fall. Neck pain. Back pain. COMPARISONS: 09/08/2017. TECHNIQUE: Thin-section axial images were acquired of the cervical spine without contrast. Post-processing: Coronal and sagittal reformats. Other: None. In accordance with CT protocol optimization, one or more of the following dose reduction techniques were utilized for this exam: automated exposure control, adjustment of mA and/or KV based on patient size, or use of iterative reconstructive technique. FINDINGS: Alignment: Straightening of the normal cervical lordosis. Grade 1 anterior listhesis of C3 on C4. No significant scoliosis. Bones: No acute fracture or bony lesion. Incomplete fusion of the posterior arch of C1, a normal variant. Degenerative spurring. Interspace Levels/Facets: C1-C2: Degenerative changes of the anterior arch of C1 and the dens. C2-C3: Disk space narrowed. Facet arthropathy. Uncovertebral hypertrophy. C3-C4: Disk space narrowing. Facet arthropathy. Mild left neural foraminal narrowing. C4-C5: Disk space narrowing osteophyte formation. Uncovertebral hypertrophy and disk osteophyte complex. Facet arthropathy. Mild to moderate left neural foramen. C5-C6: Disk space narrowing and osteophyte formation. Broad-based disk osteophyte complex. Uncovertebral hypertrophy. Facet arthropathy. Severe bilateral neural foraminal narrowing. Central canal narrowing. C6-C7: Disk space narrowing and osteophyte formation. Broad-based disk osteophyte complex. Uncovertebral hypertrophy. Facet arthropathy. Severe bilateral neural foraminal narrowing. Central canal narrowing. C7-T1: Mild disk space narrowing. Facet arthropathy. Musculature: Normal. No fatty atrophy. Other: The paravertebral and prevertebral soft tissues are unremarkable. Lung apices are clear. Airways are clear. Vascular calcifications. Again seen is a nodule in the right lobe of the thyroid gland measuring 15 mm. No enlarged cervical lymph nodes. Skull base is unremarkable. IMPRESSION: 1. No acute cervical spine abnormalities are identified. 2. Degenerative changes of the cervical spine without significant change. 3. Right thyroid lobe nodule, unchanged. [facility]
[2018-02-17 09:27] LABS: BASOPHILS % (AUTO) 0.3 %; EOSINOPHILS % (AUTO) 0.3 %; HGB - HEMOGLOBIN 12.2 g/dL (12.0-16.0); LYMPHOCYTES # (AUTO) 1.1 10^3/uL (1.5-3.5); LYMPHOCYTES % (AUTO) 12.5 %; MEAN CORPUSCULAR HEMOGLOBIN 24.9 pg (27.0-31.0); MEAN CORPUSCULAR HGB CONC 32.3 g/dL (32.0-36.0); MEAN CORPUSCULAR VOLUME 77.2 fL (81.0-99.0); MEAN PLATELET VOLUME 7.7 fL (7.9-10.8); MONOCYTES # (AUTO) 0.6 10^3/uL (0.0-1.0); MONOCYTES % (AUTO) 6.6 %; NEUTROPHILS # (AUTO) 7.2 10^3/uL (1.5-6.6); NEUTROPHILS % (AUTO) 80.3 %; PLT - PLATELET COUNT 277 10^3/uL (130-450); RED BLOOD COUNT 4.89 10^6/uL (4.20-5.40); RED CELL DISTRIBUTION WIDTH 16.1 % (12.0-15.0)
--- NOTE | 2018-02-17 09:37 | CT Report ---
Procedure Date: 02/17/2018 Accession Number: [id number] / [id number] Procedure: CT - Lumbar Spine W/O CPT Code: FULL RESULT: EXAM: CT LUMBAR SPINE WITHOUT CONTRAST EXAM DATE: 02/17/2018 08:59 AM. CLINICAL HISTORY: Bilateral pelvic and hip pain. ? fracture. COMPARISONS: None. TECHNIQUE: Thin-section axial images were acquired of the lumbar spine from T12 to S1 without contrast. Post-processing: Coronal and sagittal reformats. Other: None. In accordance with CT protocol optimization, one or more of the following dose reduction techniques were utilized for this exam: automated exposure control, adjustment of mA and/or KV based on patient size, or use of iterative reconstructive technique. FINDINGS: Alignment: There is a 7 degree levoscoliosis centered on L3-L4. There is a 5 mm grade 1 anterolisthesis at L3-L4. There is a 2 mm grade 1 retrolisthesis at L2-L3. Bones: Five [id number] lumbar vertebral bodies are present. Laminectomies at L2-L3, L3-L4 and L4-L5. No visible fracture. Disk Levels/Facets: T12-L1: There is circumferential osteophyte formation causing mild canal narrowing. There is minimal bilateral foraminal narrowing. L1-L2: There is a small posterior disk bulge with mild facet joint osteoarthritis causing mild canal narrowing. There is minimal foraminal narrowing. L2-L3: There are circumferential osteophytes with moderate facet joint osteoarthritis causing mild canal narrowing. There is mild bilateral foraminal narrowing. L3-L4: Prior laminectomy. Malalignment and endplate degeneration cause minimal canal narrowing. There is moderate bilateral foraminal narrowing. Endplate osteophytes contact both L3 nerve roots. L4-L5: Disk desiccation and loss of disk height. Circumferential osteophyte formation and moderate facet joint osteoarthritis causes mild canal narrowing. The thecal sac bulges into the laminectomy defect. There is mild right and moderate left foraminal narrowing. On the left, an endplate osteophyte contacts the L4 nerve root. A left paracentral osteophyte narrows the left lateral recess, and most likely contacts the left L5 nerve root. L5-S1: There is disk desiccation and loss of disk height. There are circumferential osteophytes. The findings cause mild canal narrowing. There is moderate left and severe right foraminal narrowing. A facet joint osteophyte compresses the right L5 nerve root. There is a right paracentral osteophyte which narrows the right lateral recess, and may contact the right S1 nerve root. Musculature: Normal. No fatty atrophy. Other: The visualized retroperitoneum is unremarkable. IMPRESSION: 1. No visible fracture. 2. Prior laminectomies at L2-L3, L3-L4 and L4-L5. 3. 7 degree levoscoliosis centered on L3-L4. 5 mm grade 1 anterolisthesis at L3-L4 and a 2 mm grade 1 retrolisthesis at L2-L3. 4. L3-L4: Moderate bilateral foraminal narrowing. Minimal canal narrowing, with the malalignment offset by the prior laminectomy. 5. L4-L5: Mild canal narrowing. Mild right and moderate left foraminal narrowing. The left L4 nerve root is contacted by an endplate osteophyte. The L5 nerve root is most likely contacted by an endplate osteophyte projecting into the lateral recess. 6. L5-S1: Mild canal narrowing. Moderate left and severe right foraminal narrowing. Paracentral osteophyte projects into the right lateral recess, and may contact the right S1 nerve root. [facility]
[2018-02-17 09:46] LABS: ALBUMIN 3.1 g/dL (3.2-5.5); ALBUMIN/GLOBULIN RATIO 0.9 (1.0-2.2); ALKALINE PHOSPHATASE 102 IU/L (42-121); ALT ALANINE AMINOTRANSFERASE < 10 IU/L (10-60); AST ASPARTATE AMINOTRANSFERASE 45 IU/L (10-42); BILIRUBIN,TOTAL 0.8 mg/dL (0.2-1.0); BUN - BLOOD UREA NITROGEN 14 mg/dL (6-20); CALCIUM 8.5 mg/dL (8.5-10.3); CARBON DIOXIDE - CO2 23 mmol/L (21-32); CHLORIDE 103 mmol/L (101-111); CREATININE 0.9 mg/dL (0.4-1.0); GFR - MDRD 62 (>89); GLUCOSE 181 mg/dL (70-100); LIPASE 21 U/L (22-51); MAGNESIUM 2.2 mg/dL (1.7-2.8); SODIUM 133 mmol/L (135-145); TOTAL PROTEIN 6.6 g/dL (6.7-8.2)
[2018-02-17] MEDS ORDERED: MECLIZINE 12.5 MG TABLET PO STA (11:27)
[2018-02-17 11:43] VITALS: BP 156/89
== END 2018-02-17 12:00 | disposition home or self-care (01) ==
LOC: EDUNIT# → ED 07:52
DX: S16.1XXA Strain of muscle, fascia and tendon at neck level, initial encounter (principal); S30.0XXA Contusion of lower back and pelvis, initial encounter; R51 Headache; M25.551 Pain in right hip; W01.0XXA Fall on same level from slipping, tripping and stumbling without subsequent striking against object, initial encounter; Y92.129 Unspecified place in nursing home as the place of occurrence of the external cause; F03.90 Unspecified dementia, unspecified severity, without behavioral disturbance, psychotic disturbance, mood disturbance, and anxiety; I10 Essential (primary) hypertension; E11.9 Type 2 diabetes mellitus without complications; Z79.4 Long term (current) use of insulin; E03.9 Hypothyroidism, unspecified
CPT/HCPCS: 36415; 70450; 72125; 72131; 72192; 80053; 83690; 83735; 85025; 99283; 99284; A9270

== ENCOUNTER 2018-05-16 21:24 | Outpatient (CLI) | payer MEDICARE, OTHER | END 2018-05-16 21:25 | disposition critical access hospital (66) | LOC: EMS 21:24 | PROVIDERS: ATTEND Surgery | DX: M25.511 Pain in right shoulder (principal); W18.39XA Other fall on same level, initial encounter; Y92.092 Bedroom in other non-institutional residence as the place of occurrence of the external cause | CPT/HCPCS: A0425; A0429 ==

== ENCOUNTER 2018-05-16 21:39 | Emergency (ER) | payer MEDICARE, OTHER ==
--- NOTE | 2018-05-16 21:48 | ED Physician Documentation ---
PD HPI Fall - Stated complaint Stated Complaint: FELL - HIT HEAD AND SHOULDER - History obtained from History obtained from: Patient - History of Present Illness Mechanism of injury: Tripped (she says was walking with her walker and it went off in wrong direction and she lost her balance, falling to right/back.) Fall distance: Standing position Where injury occurred: Home Timing - onset: Today (just [employer]) Injury(ies) location: Head, Neck, Right Upper Extremity (shoulder but has full ROM of it.), Left Lower Extremity (back of left hip) Associated symptoms: No: LOC, AMS Worsens with: Palpation (of neck and head) Similar symptoms before: Has not had sx before Review of Systems Constitutional: denies: Fever Nose: denies: Rhinorrhea / runny nose, Congestion Throat: denies: Sore throat Respiratory: denies: Cough GI: denies: Vomiting, Diarrhea Skin: denies: Abrasion (s), Laceration (s) PD PAST MEDICAL HISTORY - Past Medical History Cardiovascular: Hypertension Respiratory: Asthma, COPD, Pneumonia Endocrine/Autoimmune: Type 2 diabetes, HyPOthyroidism GI: GERD, Chronic constipation : Incontinence HEENT: None Psych: Depression, Anxiety Musculoskeletal: None Derm: None - Past Surgical History Past Surgical History: Yes Ortho: Spine surgery - Present Medications Home Medications: Ambulatory Orders Medication Instructions Recorded Confirmed Acetaminophen [Tylenol] 325 mg PO Q4HR PRN 12/10/14 04/15/17 Carbidopa/Levodopa [Carbidopa-Levo 2.5 tab PO 0600,1200,1800,2300 12/10/14 04/15/17 25-100 mg Odt] L.acidoph,Paracasei, B.lactis 1 cap PO DAILY 12/10/14 04/15/17 [Probiotic] Levothyroxine Sodium 25 mcg PO DAILY 12/10/14 04/15/17 Melatonin 5 mg PO QPM 12/10/14 04/15/17 Multivitamin [Multi-Vitamin Daily] 1 tab PO DAILY 12/10/14 04/15/17 Mupirocin 2% Oint [Bactroban 2% 1 applic TOP BID 12/10/14 04/15/17 Oint] Nystatin Cream [Mycostatin Cream] 1 applic TOP BID 12/10/14 04/15/17 Rasagiline [Azilect] 1 mg PO DAILY 12/10/14 04/15/17 Docusate Sodium [Stool Softener] 2 tab BID 04/25/15 04/15/17 Fluticasone/Salmeterol [Advair 1 puffs INH BID 04/25/15 04/15/17 100-50 Diskus] Ibuprofen 400 mg PO BID PRN 04/25/15 04/15/17 Albuterol [Ventolin Hfa] 2 puffs INH Q6H PRN 04/26/15 04/15/17 Levalbuterol Tartrate [Xopenex Hfa] 1 puffs IH Q4H PRN 04/26/15 04/15/17 HYDROcod/ACETAM 5/325 [[place] 5/325] 1 - 2 ea PO Q6H PRN 05/28/16 04/15/17 Losartan [Cozaar] 25 mg PO DAILY 05/28/16 04/15/17 Magnesium 500 mg PO QPM 05/28/16 04/15/17 Senna [Senokot] 8.6 mg PO DAILY 05/28/16 04/15/17 Naproxen 375 mg PO BID #20 tablet 04/15/17 Omeprazole [PriLOSEC] 20 mg PO BID #28 capsule 09/08/17 Tramadol HCl 50 mg PO Q6H PRN #20 tablet 09/08/17 Amantadine HCl [Amantadine] 100 mg ORAL DAILY 02/17/18 02/17/18 Alprazolam [Xanax] 0.25 mg PO 05/16/18 Clotrimazole [Clotrimazole AF] 05/16/18 Fluticasone 44 Mcg [Flovent] 1 puffs INH BID 05/16/18 05/16/18 Insulin Aspart [NovoLOG] 05/16/18 Insulin Glargine [Lantus Solostar] 05/16/18 Oxybutynin [Ditropan] 05/16/18 Polyvinyl Alcohol [Artificial PRN 05/16/18 05/16/18 Tears] busPIRone [Buspar] 30 mg PO BID 05/16/18 05/16/18 - Allergies Allergies/Adverse Reactions: Allergies Allergy/AdvReac Type Severity Reaction Status Date / Time erythromycin base Allergy Unknown Unknown Verified 05/16/18 22:00 amoxicillin Allergy Unknown Verified 05/16/18 22:00 cheese Allergy Unknown Verified 05/16/18 22:00 clavulanic acid Allergy Unknown Verified 05/16/18 22:00 [From Augmentin] furosemide [From Lasix] Allergy Unknown Verified 05/16/18 22:00 ibuprofen Allergy Unknown Verified 05/16/18 22:00 lisinopril Allergy Unknown Verified 05/16/18 22:00 zolpidem Allergy Unknown Verified 05/16/18 22:00 Penicillins AdvReac Severe Hives Verified 05/16/18 22:00 flour Allergy Unknown Uncoded 05/16/18 22:00 - Social History Does the pt smoke?: No Smoking Status: Never smoker Does the pt drink ETOH?: No Does the pt have substance abuse?: No - Immunizations Immunizations are current?: Yes - POLST Patient has POLST: Yes PD ED PE NORMAL - Vitals Vital signs reviewed: Yes - General General: Alert and oriented X 3, Well developed/nourished - HEENT HEENT: Pharynx benign, Other (right parietal area with some mild swelling and tenderness. ) - Neck Neck: Supple, no meningeal sign, No adenopathy, Other (tender at right lateral lower cervical area. ) - Cardiac Cardiac: RRR, No murmur - Respiratory Respiratory: Clear bilaterally, Other (no chestwall tenderness) - Abdomen Abdomen: Soft, Non tender - Derm Derm: Normal color, Warm and dry - Extremities Extremities: Other (left posterior hip/gluteal area with some tenderness. Hip itself with good ROM and no pain with it. ) Results - Vitals Vitals: Vital Signs - 24 hr 05/16/18 05/16/18 05/16/18 21:45 22:50 22:58 Temperature 36.5 C Heart Rate 82 79 Respiratory 12 18 16 Rate Blood Pressure 152/71 H 153/80 H O2 Saturation 93 96 05/16/18 23:10 Temperature Heart Rate 79 Respiratory 16 Rate Blood Pressure O2 Saturation 96 Oxygen O2 Source Room air - Rads (name of study) head CT Radiology: Prelim report reviewed (no acute process) cervical CT Radiology: Prelim report reviewed (no fractures) pelvic CT Radiology: Prelim report reviewed (no CT evidence of fracture) PD MEDICAL DECISION MAKING - ED course Complexity details: reviewed results, considered differential, d/w patient Departure - Departure Disposition: Home, Self Care Clinical Impression: Fall from slip, trip, or stumble Qualifiers: Encounter type: initial encounter Qualified Code(s): W01.0XXA - Fall on same level from slipping, tripping and stumbling without subsequent striking against object, initial encounter Scalp contusion Qualifiers: Encounter type: initial encounter Qualified Code(s): S00.03XA - Contusion of scalp, initial encounter Acute cervical myofascial strain Qualifiers: Encounter type: initial encounter Qualified Code(s): S16.1XXA - Strain of muscle, fascia and tendon at neck level, initial encounter Contusion of left hip Qualifiers: Encounter type: initial encounter Qualified Code(s): S70.02XA - Contusion of left hip, initial encounter Condition: Stable Record reviewed to determine appropriate education?: Yes Instructions: ED Sprain Strain Neck Follow-Up: Ray Irvin DO [Primary Care Provider] - Comments: Your scan pictures appear normal of the head neck and pelvis. No obvious fractures. Continue usual medications. Tylenol 650 mg 4 times a day if needed for pains.
[2018-05-16] MEDS ORDERED: ACETAMINOPHEN 325 MG TABLET PO STA (22:07)
[2018-05-16 22:51] VITALS: BP 153/80
--- NOTE | 2018-05-16 22:55 | CT Report ---
Reason: fell and struck head Procedure Date: 05/16/2018 Accession Number: [id number] / [id number] Procedure: CT - Head W/O CPT Code: FULL RESULT: EXAM: CT HEAD EXAM DATE: 05/16/2018 10:29 PM. CLINICAL HISTORY: Fell and struck head. COMPARISON: CT head 02/17/2018. TECHNIQUE: Multiaxial CT images were obtained from the foramen magnum to the vertex. Reformats: Sagittal and coronal. IV contrast: None. In accordance with CT protocol optimization, one or more of the following dose reduction techniques were utilized for this exam: automated exposure control, adjustment of mA and/or KV based on patient size, or use of iterative reconstructive technique. FINDINGS: Parenchyma: No intraparenchymal hemorrhage. No evidence of mass, midline shift, or CT findings of infarction. Macdonald-white differentiation is distinct. There is mild to moderate chronic microvascular change in the cerebral white matter bilaterally. This appears stable. Extraaxial Spaces: There is mild age-related generalized cerebral volume loss. No subdural or epidural collections identified. Ventricles: Normal. No hydrocephalus. Sinuses and Orbits: Imaged paranasal sinuses, orbits, and mastoids show no significant abnormality. Bones: No evidence of fracture or calvarial defect. Other: None. IMPRESSION: 1. No acute intracranial abnormality. No significant change compared to 02/17/2018. 2. Age-related generalized cerebral volume loss and chronic microvascular change. [facility]
--- NOTE | 2018-05-16 23:02 | CT Report ---
Reason: fall with neck pain Procedure Date: 05/16/2018 Accession Number: [id number] / [id number] Procedure: CT - Cervical Spine W/O CPT Code: FULL RESULT: EXAM: CT CERVICAL SPINE WITHOUT CONTRAST DATE: 05/16/2018 10:32 PM. HISTORY: Fall with neck pain. COMPARISONS: CERVICAL SPINE W/O 02/17/2018 8:43 AM. TECHNIQUE: Thin-section axial images were acquired of the cervical spine without contrast. Post-processing: Coronal and sagittal reformats. Other: None. In accordance with CT protocol optimization, one or more of the following dose reduction techniques were utilized for this exam: automated exposure control, adjustment of mA and/or KV based on patient size, or use of iterative reconstructive technique. FINDINGS: Alignment: A 2 mm degenerative anterolisthesis at C3-C4 is unchanged. Alignment is otherwise maintained. Bones: No fracture or bone lesion. Interspace Levels/Facets: C1-C2: Unremarkable. C2-C3: There is partial fusion across the disk space. This is likely congenital. Mild right facet hypertrophy. No canal or foraminal stenosis. C3-C4: There is moderate left facet hypertrophy resulting in moderate left foraminal stenosis. No significant central canal or right foraminal stenosis. C4-C5: Mild to moderate disk narrowing. Left-sided uncovertebral facet hypertrophy causes mild to moderate left foraminal stenosis. No significant central canal or right foraminal stenosis. C5-C6: Mild anterior spurring and mild to moderate disk narrowing. Posterior osseous ridging mildly narrows the central canal. Uncovertebral facet hypertrophy causes moderate bilateral foraminal stenosis. C6-C7: Anterior spurring and mild to moderate disk narrowing is present. Posterior endplate spurring and disk bulging mildly narrows the central canal. Uncinate hypertrophy contributes to moderate bilateral foraminal stenosis. C7-T1: Unremarkable. Musculature: Unremarkable. Other: The paravertebral and prevertebral soft tissues are unremarkable. The lung apices are clear. IMPRESSION: 1. No acute abnormality. No evidence of a cervical spine fracture or subluxation. 2. Multilevel cervical spondylosis as detailed above. No significant change compared to 02/17/2018. [facility]
--- NOTE | 2018-05-16 23:18 | CT Report ---
Reason: fall with left posterior hip pain Procedure Date: 05/16/2018 Accession Number: [id number] / [id number] Procedure: CT - Pelvis W/O CPT Code: FULL RESULT: EXAM: CT BONY PELVIS/LEFT HIP WITHOUT CONTRAST EXAM DATE: 05/16/2018 10:46 PM. CLINICAL HISTORY: Fall with left posterior hip pain. COMPARISON: LUMBAR SPINE W/O 02/17/2018 8:47 AM ABDOMEN/PELVIS W/ 12/29/2015 1:37 PM. TECHNIQUE: Thin-section axial images were acquired of the pelvis without contrast. Post-processing: Coronal of the entire pelvis and sagittal reformats of the left hip in particular. Other: None. In accordance with CT protocol optimization, one or more of the following dose reduction techniques were utilized for this exam: automated exposure control, adjustment of mA and/or KV based on patient size, or use of iterative reconstructive technique. FINDINGS: Bones: No fracture or bone lesion. Joints: No malalignment seen. No large effusion. Musculature: Normal. No fatty atrophy. Pelvic Cavity: Extensive colonic diverticulosis. Previous hysterectomy with no adnexal masses seen. Urinary bladder unremarkable. Other: No soft tissue hematoma seen. 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 IMPRESSION: 1. No CT evidence of pelvic/left hip fracture. If there is continued concern and patient is unable to weight-bear, MRI can be used to increase sensitivity in elderly patients. 2. Colonic diverticulosis. 3. Previous hysterectomy. 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 [facility]
== END 2018-05-17 00:15 | disposition home or self-care (01) ==
LOC: EDUNIT# → ED 21:39
DX: S00.03XA Contusion of scalp, initial encounter (principal); S16.1XXA Strain of muscle, fascia and tendon at neck level, initial encounter; S70.02XA Contusion of left hip, initial encounter; W01.10XA Fall on same level from slipping, tripping and stumbling with subsequent striking against unspecified object, initial encounter; Y93.01 Activity, walking, marching and hiking; I10 Essential (primary) hypertension; E03.9 Hypothyroidism, unspecified; E11.9 Type 2 diabetes mellitus without complications
CPT/HCPCS: 70450; 72125; 72192; 99283; 99284; A9270

== ENCOUNTER → 2018-05-26 | Outpatient (CLI) | payer MEDICARE, OTHER | LOC: LAB.WCP 11:00 | PROVIDERS: ATTEND Family Medicine | DX: R35.0 Frequency of micturition (principal) | CPT/HCPCS: 87086 ==

== ENCOUNTER 2018-07-02 08:00 | Outpatient (CLI) | payer MEDICARE, OTHER | END 2018-07-02 23:59 | disposition home or self-care (01) | LOC: LAB.WCP 08:00 | PROVIDERS: ATTEND Family Medicine | DX: R35.0 Frequency of micturition (principal) | CPT/HCPCS: 87086 ==

== ENCOUNTER 2018-08-04 12:00 | Outpatient (CLI) | payer MEDICARE, OTHER ==
[2018-08-04 18:44] LABS: BASOPHILS % (AUTO) 0.3 %; EOSINOPHILS # (AUTO) 0.1 10^3/uL (0.0-0.7); EOSINOPHILS % (AUTO) 0.7 %; HGB - HEMOGLOBIN 12.4 g/dL (12.0-16.0); LYMPHOCYTES # (AUTO) 1.4 10^3/uL (1.5-3.5); LYMPHOCYTES % (AUTO) 16.8 %; MEAN CORPUSCULAR HEMOGLOBIN 24.7 pg (27.0-31.0); MEAN CORPUSCULAR HGB CONC 31.2 g/dL (32.0-36.0); MEAN CORPUSCULAR VOLUME 79.2 fL (81.0-99.0); MEAN PLATELET VOLUME 8.1 fL (7.9-10.8); MONOCYTES # (AUTO) 0.5 10^3/uL (0.0-1.0); MONOCYTES % (AUTO) 6.5 %; NEUTROPHILS # (AUTO) 6.1 10^3/uL (1.5-6.6); NEUTROPHILS % (AUTO) 75.7 %; PLT - PLATELET COUNT 316 10^3/uL (130-450); RED CELL DISTRIBUTION WIDTH 16.2 % (12.0-15.0); WHITE BLOOD COUNT 8.1 x10^3/uL (4.8-10.8)
[2018-08-04 19:09] LABS: ALBUMIN 3.4 g/dL (3.2-5.5); ALBUMIN/GLOBULIN RATIO 1.1 (1.0-2.2); ALKALINE PHOSPHATASE 101 IU/L (42-121); ALT ALANINE AMINOTRANSFERASE 18 IU/L (10-60); AST ASPARTATE AMINOTRANSFERASE 44 IU/L (10-42); BILIRUBIN,TOTAL 0.4 mg/dL (0.2-1.0); BUN - BLOOD UREA NITROGEN 16 mg/dL (6-20); CHOL/HDL RATIO 2.6 (<4.4); CHOLESTEROL 153 mg/dL; CREATININE 0.8 mg/dL (0.4-1.0); GFR - MDRD 71 (>89); HDL CHOLESTEROL 58 mg/dL; LDL CHOLESTEROL,CALCULATED 68 mg/dL; LDL/HDL RATIO 1.2 (<4.4); TOTAL PROTEIN 6.4 g/dL (6.7-8.2); VLDL CHOLESTEROL 27 mg/dL
[2018-08-04 19:33] LABS: CALCIUM 8.9 mg/dL (8.5-10.3); CARBON DIOXIDE - CO2 22 mmol/L (21-32); CHLORIDE 104 mmol/L (101-111); GLUCOSE 191 mg/dL (70-100); SODIUM 137 mmol/L (135-145)
[2018-08-04 20:04] LABS: HB2 TOTAL 12.9 g/dL; HEMOGLOBIN A1C 0.71 g/dL; HEMOGLOBIN A1C % 7.2 % (4.6-6.2)
== END 2018-08-04 23:59 | disposition home or self-care (01) ==
LOC: LAB.WCP 12:00
PROVIDERS: ATTEND Family Medicine
DX: E11.9 Type 2 diabetes mellitus without complications (principal)
CPT/HCPCS: 36415; 80053; 80061; 82043; 82570; 83036; 83721; 84443; 85025

== ENCOUNTER 2018-08-05 08:00 | Outpatient (CLI) | payer MEDICARE, OTHER ==
[2018-08-05 20:20] LABS: CREATININE,URINE 119.2 mg/dL; MICROALBUM/CREATININE RATIO,UR 122.5 ug/mg (<30.0); MICROALBUMIN,URINE 14.6 mg/dL (0-300.0)
== END 2018-08-05 23:59 | disposition home or self-care (01) ==
LOC: LAB.WCP 08:00
PROVIDERS: ATTEND Family Medicine
DX: E11.9 Type 2 diabetes mellitus without complications (principal)
CPT/HCPCS: 82043; 82570

== ENCOUNTER 2018-09-01 08:00 | Outpatient (CLI) | payer MEDICARE, OTHER ==
[2018-09-01 18:31] LABS: BILIRUBIN,URINE NEGATIVE (NEGATIVE); GLUCOSE, URINE (UA) NEGATIVE (NEGATIVE); KETONES,URINE (UA) TRACE mg/dL (NEGATIVE); LEUKOCYTE ESTERASE, URINE SMALL (NEGATIVE); NITRITE,URINE NEGATIVE (NEGATIVE); OCCULT BLOOD,URINE TRACE-INTA (NEGATIVE); PH,URINE 5.5 PH (5.0-7.5); PROTEIN,URINE TRACE mg/dL (NEGATIVE); UROBILINOGEN,URINE 0.2 (NORMAL) E.U./dL (NORMAL)
[2018-09-01 18:40] LABS: CLARITY,URINE CLOUDY (CLEAR); WBC CLUMPS,URINE PRESENT
[2018-09-01 18:41] LABS: BACTERIA,URINE Many /HPF (None Seen); CRYSTALS,URINE 11-25 Ca Oxalate /LPF; SQUAMOUS EPITHELIAL CELL,UR RARE Squamous (<= Few)
== END 2018-09-01 23:59 | disposition home or self-care (01) ==
LOC: LAB.R 08:00
PROVIDERS: ATTEND Family Medicine
DX: R30.0 Dysuria (principal)
CPT/HCPCS: 81001; 87086

== ENCOUNTER 2018-09-11 08:00 | Outpatient (CLI) | payer MEDICARE, OTHER | END 2018-09-11 23:59 | disposition home or self-care (01) | LOC: LAB.WCP 08:00 | PROVIDERS: ATTEND Family Medicine | DX: R30.0 Dysuria (principal) | CPT/HCPCS: 87086 ==

== ENCOUNTER 2018-09-20 11:38 | Outpatient (CLI) | payer MEDICARE, OTHER | END 2018-09-20 11:39 | disposition E | LOC: EMS 11:38 | PROVIDERS: ATTEND Surgery ==